=== PATIENT | male | born 1950 | race Caucasian/White ===

== ENCOUNTER → 2017-09-28 12:42 | Outpatient (CLI) | payer MEDICARE, SELFPAY ==
--- NOTE | 2017-09-28 12:53 | XR_ITS ---
XR chest 2V HISTORY: Cardiac arrhythmia ITS.REASON: on amiodarone therapyt ORDERING PHYSICIAN: Neri Hu MD PATIENT AGE: 67 years COMPARISON: 06/30/2016 FINDINGS: There is borderline cardiomegaly without failure. Lungs are clear of acute infiltrate. No pulmonary fibrotic changes are evident. No evidence of amiodarone lung toxicity. There are degenerative changes in the thoracic spine. IMPRESSION: No change with no acute finding
[2017-09-28 13:22] LABS: Basophils # 0.1 K/mm3 (0-0.2); Basophils % 0.7 % (0.1-2.0); Eosinophils # 0.1 K/mm3 (0.0-0.4); Eosinophils % 1.5 % (0.1-12.0); Hematocrit 40.7 % (42.0-52.0); Lymphocytes # 1.9 K/mm3 (0.7-4.5); Lymphocytes % 31.1 K/mm3 (10-50); Mean Corpuscular Hemoglobin 30.8 pg (27.0-31.2); Mean Corpuscular Volume 96.4 fl (80-94); Mean Platelet Volume 7.6 fl (7.4-10.4); Monocytes # 0.4 K/mm3 (0.1-1.0); Monocytes % 6.5 % (1.7-9.3); Neutrophils # 3.7 K/mm3 (1.8-7.8); Neutrophils % 60.2 % (37.0-80.0); Platelet Count 291 K/mm3 (142-424); Red Blood Count 4.22 M/mm3 (4.60-6.20); Red Cell Distribution Width 13.5 % (11.5-17.5); White Blood Count 6.2 K/mm3 (4.8-10.8)
[2017-09-28 14:42] LABS: Alanine Aminotransferase 48 U/L (12-78); Albumin Level 4.2 gm/dL (3.4-5.0); Alkaline Phosphatase 64 U/L (46-116); Anion Gap 12.6 mEq/L (5-15); Aspartate Amino Transferase 22 U/L (15-37); Bilirubin,Direct 0.2 mg/dL (0.0-0.2); Bilirubin,Indirect 0.1 mg/dL (0.0-0.9); Bilirubin,Total 0.3 mg/dL (0.2-1.0); Blood Urea Nitrogen 29 mg/dL (7-18); Carbon Dioxide 30 mmol/L (21.0-32.0); Chloride 106 mmol/L (98-107); Chol/HDL Ratio 3.2 (1-3.5); Cholesterol 169 mg/dL (140-200); Creatinine,Serum 0.98 mg/dL (0.70-1.30); Estimated Glomerular Filt Rate 76 ml/min (>60); Free T4 (Free Thyroxine) 1.12 ng/dl (0.76-1.46); GFR (African American) 92 ML/MIN (>60); Glucose 106 mg/dL (74-106); HDL Cholesterol 53 mg/dL (27-67); LDL Cholesterol 97 mg/dL (0-130); Potassium 4.6 mmoL/L (3.5-5.1); Sodium 144 mmol/L (136-145); Thyroid Stimulating Hormone 2.13 uIU/ml (0.358-3.740); Total Protein,Serum 7.4 gm/dL (6.4-8.2); Triglycerides 95 mg/dL (30-200); VLDL Cholesterol 19 mg/dL (0-40)
== END ==
PROVIDERS: PCP Family Medicine; Visit Provider Internal Medicine
DX: Z79.899 Other long term (current) drug therapy (principal); I11.9 Hypertensive heart disease without heart failure; I48.91 Unspecified atrial fibrillation; E78.5 Hyperlipidemia, unspecified; I10 Essential (primary) hypertension
CPT/HCPCS: 36415; 71046; 80048; 80061; 80076; 84439; 84443; 84481; 85025

== ENCOUNTER → 2018-07-13 12:49 | Outpatient (CLI) | payer MEDICARE, SELFPAY ==
--- NOTE | 2018-07-13 13:13 | XR_ITS ---
XR chest 2V HISTORY: Long-term medication use, prior smoker ITS.REASON: c ORDERING PHYSICIAN: Savannah Pierce PATIENT AGE: 68 years COMPARISON: 09/28/2017 FINDINGS: Cardiomegaly without failure. No lobar consolidation or collapse is evident. There is some increased density in the right lower lobe is felt to be due to summation artifact from overlying vessels and soft tissue. Mild degenerative changes are present in the thoracic spine. IMPRESSION: Cardiomegaly, no change with no acute finding
[2018-07-13 14:49] LABS: Alanine Aminotransferase 48 U/L (12-78); Albumin Level 3.8 gm/dL (3.4-5.0); Alkaline Phosphatase 68 U/L (46-116); Aspartate Amino Transferase 12 U/L (15-37); Bilirubin,Direct 0.1 mg/dL (0.0-0.2); Bilirubin,Indirect 0.1 mg/dL (0.0-0.9); Bilirubin,Total 0.2 mg/dL (0.2-1.0); Free T4 (Free Thyroxine) 0.82 ng/dl (0.76-1.46); Thyroid Stimulating Hormone 2.04 uIU/ml (0.358-3.740); Total Protein,Serum 6.8 gm/dL (6.4-8.2)
== END ==
PROVIDERS: Visit Provider Nurse Practitioner Family
DX: I11.9 Hypertensive heart disease without heart failure; I25.10 Atherosclerotic heart disease of native coronary artery without angina pectoris; I48.0 Paroxysmal atrial fibrillation; Z79.899 Other long term (current) drug therapy; E78.49 Other hyperlipidemia
CPT/HCPCS: 36415; 71046; 80076; 84439; 84443

== ENCOUNTER → 2019-05-31 09:08 | Outpatient (CLI) | payer MEDICARE, MEDICAID, SELFPAY ==
--- NOTE | 2019-05-31 09:20 | XR_ITS ---
PROCEDURE: XR CHEST 2V CLINICAL HISTORY: on amiodarone Current smoker, heart disease COMPARISON: CXR CHEST(2 VIEWS-NOT PORTABLE) from 06/30/2016 CXR2V XR chest 2V from 09/28/2017 CXR2V XR chest 2V from 07/13/2018 FINDINGS: The cardiomediastinal silhouette and pulmonary vascularity are within normal limits. There is mild hyperinflation with increased AP dimension of the chest suggesting COPD. No lobar consolidation or collapse. No pulmonary fibrotic change. Degenerative change with mild kyphosis IMPRESSION: No change with no acute finding. No evidence of amiodarone lung toxicity COPD Dictated by: Obi Frey MD 05/31/2019 09:59 Electronically signed by Obi Frey MD in [place] 05/31/2019 09:59
[2019-05-31 11:18] LABS: Alanine Aminotransferase 35 U/L (12-78); Albumin Level 3.9 gm/dL (3.4-5.0); Alkaline Phosphatase 65 U/L (46-116); Aspartate Amino Transferase 13 U/L (15-37); Bilirubin,Direct 0.1 mg/dL (0.0-0.2); Bilirubin,Indirect 0.1 mg/dL (0.0-0.9); Bilirubin,Total 0.2 mg/dL (0.2-1.0); Free T4 (Free Thyroxine) 0.94 ng/dl (0.76-1.46); Total Protein,Serum 6.8 gm/dL (6.4-8.2)
== END ==
PROVIDERS: Visit Provider Urology
DX: E78.5 Hyperlipidemia, unspecified (principal); G47.9 Sleep disorder, unspecified; I11.9 Hypertensive heart disease without heart failure; I25.10 Atherosclerotic heart disease of native coronary artery without angina pectoris; I48.91 Unspecified atrial fibrillation; R06.83 Snoring; R40.0 Somnolence; Z79.899 Other long term (current) drug therapy; Z72.0 Tobacco use
CPT/HCPCS: 36415; 71046; 80076; 84439; 84443

== ENCOUNTER → 2019-06-14 14:11 | Outpatient (CLI) | payer MEDICARE, MEDICAID, SELFPAY | PROVIDERS: PCP Family Medicine; Visit Provider Urology | DX: G47.33 Obstructive sleep apnea (adult) (pediatric) (principal); R06.83 Snoring; R40.0 Somnolence | CPT/HCPCS: G0399 ==

== ENCOUNTER → 2019-06-22 12:58 | Outpatient (CLI) | payer MEDICARE, SELFPAY ==
[2019-06-22 16:25] LABS: Ferritin 78 ng/mL (8-388)
== END ==
PROVIDERS: Visit Provider Nurse Practitioner Family
DX: E83.10 Disorder of iron metabolism, unspecified (principal)
CPT/HCPCS: 36415; 82728

== ENCOUNTER → 2019-12-04 08:55 | Outpatient (CLI) | payer MEDICARE, MEDICAID, SELFPAY ==
[2019-12-04 10:22] LABS: Coronavirus 19 IgG Antibody Negative (Negative); Coronavirus 19 IgM Antibody Negative (Negative)
== END ==
PROVIDERS: Visit Provider Ophthalmology
DX: Z01.818 Encounter for other preprocedural examination (principal)
CPT/HCPCS: 36415; 86328

== ENCOUNTER 2019-12-05 09:03 | Day surgery (SDC) | payer MEDICARE, MEDICAID, SELFPAY ==
[2019-12-05 09:43] VITALS: BP 137/63; PULSE 67; RESP 18; TEMP 36.7; O2SAT 95; BMI 40.7
[2019-12-05 10:58] VITALS: BP 162/67; PULSE 66; RESP 18; O2SAT 98
[2019-12-05 11:03] VITALS: BP 142/62; PULSE 62; RESP 20; O2SAT 100
[2019-12-05 11:08] VITALS: BP 138/64; PULSE 61; RESP 20; O2SAT 100
[2019-12-05 11:13] VITALS: BP 140/67; PULSE 61; RESP 18; O2SAT 100
[2019-12-05 11:18] VITALS: BP 136/80; PULSE 66; RESP 16; TEMP 36.6; O2SAT 99
== END 2019-12-05 11:28 | disposition home or self-care (01) ==
LOC: OR 09:06
PROVIDERS: PCP Family Medicine; Visit Provider Ophthalmology
DX: H26.9 Unspecified cataract (principal); I10 Essential (primary) hypertension; Z88.0 Allergy status to penicillin; I48.91 Unspecified atrial fibrillation; I25.10 Atherosclerotic heart disease of native coronary artery without angina pectoris; E78.5 Hyperlipidemia, unspecified; Z95.818 Presence of other cardiac implants and grafts; Z79.82 Long term (current) use of aspirin; Z79.899 Other long term (current) drug therapy
CPT/HCPCS: 66984; V2632

== ENCOUNTER → 2019-12-18 10:21 | Outpatient (CLI) | payer MEDICARE, MEDICAID, SELFPAY ==
[2019-12-18 13:18] LABS: Coronavirus 19 IgG Antibody Negative (Negative); Coronavirus 19 IgM Antibody Negative (Negative)
== END ==
PROVIDERS: Visit Provider Ophthalmology
DX: Z01.818 Encounter for other preprocedural examination (principal); H26.9 Unspecified cataract
CPT/HCPCS: 36415; 86328

== ENCOUNTER 2019-12-19 08:05 | Day surgery (SDC) | payer MEDICARE, MEDICAID, SELFPAY ==
[2019-12-18 09:47] VITALS: BMI 52.3
[2019-12-19 08:47] VITALS: BP 140/50; PULSE 66; RESP 18; TEMP 36.4; O2SAT 99
[2019-12-19 09:57] VITALS: BP 133/61; PULSE 62; RESP 22; O2SAT 98
[2019-12-19 10:02] VITALS: BP 129/64; PULSE 63; RESP 22; O2SAT 100
[2019-12-19 10:07] VITALS: BP 128/61; PULSE 63; RESP 20; O2SAT 100
[2019-12-19 10:12] VITALS: BP 125/59; PULSE 61; RESP 20; O2SAT 100
[2019-12-19 10:16] VITALS: BP 129/66; PULSE 79; RESP 18; TEMP 36.3; O2SAT 96
== END 2019-12-19 10:26 | disposition home or self-care (01) ==
LOC: OR 08:08
PROVIDERS: PCP Family Medicine; Visit Provider Ophthalmology
PROC: (CPT 66984; principal; 2019-12-19 10:00)
DX: H53.8 Other visual disturbances; I10 Essential (primary) hypertension; Z88.0 Allergy status to penicillin; Z79.82 Long term (current) use of aspirin; Z79.899 Other long term (current) drug therapy; Z87.891 Personal history of nicotine dependence; I48.91 Unspecified atrial fibrillation; I25.10 Atherosclerotic heart disease of native coronary artery without angina pectoris; E78.5 Hyperlipidemia, unspecified; F41.9 Anxiety disorder, unspecified; K21.9 Gastro-esophageal reflux disease without esophagitis; H25.813 Combined forms of age-related cataract, bilateral
CPT/HCPCS: 66984; V2632

== ENCOUNTER → 2020-01-30 09:38 | Outpatient (CLI) | payer MEDICARE, SELFPAY ==
--- NOTE | 2020-01-30 10:19 | XR_ITS ---
PROCEDURE: XR CHEST 2V CLINICAL HISTORY: on amio therapy Heart disease COMPARISON: CR CXR2V XR chest 2V from 09/28/2017 CR CXR2V XR chest 2V from 07/13/2018 CR XR CHEST 2V from 05/31/2019 FINDINGS: Mild cardiomegaly without failure. The lungs are clear without infiltrates, suspicious nodules, or pleural effusions. No pulmonary fibrotic changes evident. No acute bony findings. There are degenerative changes in the thoracic spine IMPRESSION: No change with no acute finding. No convincing evidence of amiodarone lung toxicity Dictated by: Obi Frey MD 01/30/2020 10:34 Obi Frey MD in [place] 01/30/2020 10:34
[2020-01-30 11:16] LABS: Alanine Aminotransferase 29 U/L (12-78); Alkaline Phosphatase 73 U/L (38-126); Aspartate Amino Transferase 24 U/L (17-59); Bilirubin,Direct 0.1 mg/dl (0.0-0.4); Bilirubin,Indirect 0.2 mg/dL (0.0-0.9); Bilirubin,Total 0.3 mg/dl (0.2-1.3); Bilirubin,Unconjugated 0.2 mg/dL (0.0-1.1); Total Protein,Serum 6.6 g/dl (6.3-8.2)
[2020-01-30 11:35] LABS: Free Thyroxine Index 5.1 ug/dL (5.93-13.13); Triiodothryronine (T3) Uptake 39 % (23.5-40.5)
[2020-01-30 11:48] LABS: Thyroid Stimulating Hormone < 0.02 uIU/mL (0.465-4.68)
== END ==
PROVIDERS: Urology; PCP Family Medicine; Visit Provider Nurse Practitioner Family
DX: I11.9 Hypertensive heart disease without heart failure; I25.10 Atherosclerotic heart disease of native coronary artery without angina pectoris; Z79.899 Other long term (current) drug therapy
CPT/HCPCS: 36415; 71046; 80076; 84436; 84443; 84479

== ENCOUNTER → 2020-04-15 08:09 | Outpatient (CLI) | payer MEDICARE, MEDICAID, SELFPAY ==
[2020-04-15 10:41] LABS: Coronavirus 19 IgG Antibody Negative (Negative); Coronavirus 19 IgM Antibody Negative (Negative)
== END ==
PROVIDERS: Visit Provider Ophthalmology
DX: Z01.818 Encounter for other preprocedural examination (principal)
CPT/HCPCS: 36415; 86328

== ENCOUNTER 2020-04-16 09:01 | Day surgery (SDC) | payer MEDICARE, MEDICAID, SELFPAY ==
[2020-04-09 12:50] VITALS: BMI 40.6
[2020-04-16 10:25] VITALS: BP 152/79; PULSE 56; RESP 18; TEMP 36.3; O2SAT 96
[2020-04-16 12:49] VITALS: BP 151/75; PULSE 55; RESP 18; TEMP 36.6; O2SAT 98
== END 2020-04-16 11:25 | disposition home or self-care (01) ==
LOC: OUTP 09:04
PROVIDERS: PCP Family Medicine; Visit Provider Ophthalmology
PROC: (CPT 66821; principal; 2020-04-16 10:30)
DX: H43.392 Other vitreous opacities, left eye (principal); H26.492 Other secondary cataract, left eye
CPT/HCPCS: 66821

== ENCOUNTER → 2020-10-09 09:02 | Outpatient (CLI) | payer MEDICARE, MEDICAID, SELFPAY ==
--- NOTE | 2020-10-09 09:08 | XR_ITS ---
PROCEDURE: XR CHEST 2V CLINICAL HISTORY: amiodarone therapy. COMPARISON: CR CXR2V XR chest 2V from 07/13/2018 CR XR CHEST 2V from 05/31/2019 CR XR CHEST 2V from 01/30/2020 FINDINGS: The cardiomediastinal silhouette and pulmonary vascularity are within normal limits. The lungs are clear without infiltrates, suspicious nodules, or pleural effusions. No acute bony abnormalities. IMPRESSION: No change with no acute finding. No evidence of amiodarone lung toxicity. Dictated by: Obi Frey MD 10/09/2020 12:27 Obi Frey MD in [place] 10/09/2020 12:27
== END ==
PROVIDERS: PCP Family Medicine; Visit Provider Urology
DX: E78.2 Mixed hyperlipidemia (principal); I11.9 Hypertensive heart disease without heart failure; I25.10 Atherosclerotic heart disease of native coronary artery without angina pectoris; I48.0 Paroxysmal atrial fibrillation; Z79.899 Other long term (current) drug therapy
CPT/HCPCS: 71046

== ENCOUNTER → 2022-04-08 10:09 | Outpatient (CLI) | payer MEDICARE, MEDICAID, SELFPAY ==
--- NOTE | 2022-04-08 10:44 | XR_ITS ---
FINAL REPORT TECHNIQUE: Chest PA & Lateral CLINICAL HISTORY: on amio COMPARISON: 10/09/2020 FINDINGS: 2 views of the chest were performed. There is mild cardiomegaly. The mediastinum is within normal limits. The lungs are a little underinflated. There is no acute cardiopulmonary process. There are no pleural effusions. There is no pneumothorax. The bony thorax appears intact. IMPRESSION: No acute cardiopulmonary process. Reviewed, Interpreted and Dictated by Benja Vallejo MD Transcribed by Staci Nicholas Authenticated and . [facility]
[2022-04-08 11:55] LABS: Basophils # 0.1 K/mm3 (0-0.2); Basophils % 0.9 % (0.1-2.0); Eosinophils # 0.1 K/mm3 (0.0-0.4); Eosinophils % 1.2 % (0.1-12.0); Hematocrit 40.5 % (42.0-52.0); Hemoglobin 12.8 g/dL (14.1-18.0); Lymphocytes # 2.1 K/mm3 (0.7-4.5); Mean Corpuscular HGB Conc 31.6 g/dL (31.8-35.4); Mean Corpuscular Hemoglobin 31.6 pg (27.0-31.2); Mean Corpuscular Volume 99.8 fl (80-94); Mean Platelet Volume 8.5 fl (7.4-10.4); Monocytes # 0.5 K/mm3 (0.1-1.0); Monocytes % 5.8 % (1.7-9.3); Neutrophils # 5.2 K/mm3 (1.8-7.8); Platelet Count 295 K/mm3 (142-424); Red Blood Count 4.06 M/mm3 (4.60-6.20); Red Cell Distribution Width 14.6 % (11.5-17.5); White Blood Count 7.9 K/mm3 (4.8-10.8)
[2022-04-08 12:44] LABS: Alanine Aminotransferase 28 U/L (12-78); Albumin Level 4.4 g/dl (3.5-5.0); Alkaline Phosphatase 80 U/L (38-126); Anion Gap 16.5 mEq/L (5-15); Aspartate Amino Transferase 23 U/L (17-59); Bilirubin,Unconjugated 0.2 mg/dL (0.0-1.1); Blood Urea Nitrogen 28 mg/dl (9-20); Calcium 9.7 mg/dl (8.4-10.2); Carbon Dioxide 30 mmol/L (22.0-30.0); Chloride 99 mmol/L (98-107); Chol/HDL Ratio 2.4 (1-3.5); Cholesterol 129 mg/dl (140-200); Estimated Glomerular Filt Rate 59 ml/min (>60); GFR (African American) 72 ML/MIN (>60); Glucose 95 mg/dl (74-100); HDL Cholesterol 54 mg/dl (40-60); Potassium 4.5 mmoL/L (3.5-5.1); Sodium 141 mmol/L (136-145); Total Protein,Serum 6.9 g/dl (6.3-8.2); Triglycerides 86 mg/dl (30-150); VLDL Cholesterol 17 mg/dL (0-40)
[2022-04-08 12:45] LABS: Bilirubin,Indirect 0.1 mg/dL (0.0-0.9); Bilirubin,Total 0.1 mg/dl (0.2-1.3)
[2022-04-08 13:01] LABS: Direct LDL Cholesterol 50.32 mg/dL (100-129)
[2022-04-08 13:14] LABS: Thyroid Stimulating Hormone 6.22 uIU/mL (0.465-4.68)
== END ==
PROVIDERS: PCP Family Medicine; Visit Provider Nurse Practitioner
DX: E78.2 Mixed hyperlipidemia (principal); I11.9 Hypertensive heart disease without heart failure; I25.10 Atherosclerotic heart disease of native coronary artery without angina pectoris; I48.0 Paroxysmal atrial fibrillation; Z79.899 Other long term (current) drug therapy; I63.9 Cerebral infarction, unspecified; E11.9 Type 2 diabetes mellitus without complications; R06.00 Dyspnea, unspecified
CPT/HCPCS: 36415; 71046; 80048; 80061; 80076; 84443; 85025

== ENCOUNTER → 2022-04-14 10:50 | Outpatient (CLI) | payer MEDICARE, MEDICAID, SELFPAY | PROVIDERS: PCP Family Medicine; Visit Provider Nurse Practitioner | DX: E78.2 Mixed hyperlipidemia (principal); I11.9 Hypertensive heart disease without heart failure; I25.10 Atherosclerotic heart disease of native coronary artery without angina pectoris; I48.0 Paroxysmal atrial fibrillation; Z79.899 Other long term (current) drug therapy | CPT/HCPCS: 93306 ==

== ENCOUNTER 2022-06-03 05:41 | Inpatient (IN) | payer MEDICARE, MEDICAID, SELFPAY ==
[2022-06-03] VITALS (9 sets, daily range): BP systolic 141–180; BP diastolic 67–92; PULSE 78–120; RESP 18–27; TEMP 36.6–37.8; O2SAT 83–96; BMI 42.5; BMI 42.1
--- NOTE | 2022-06-03 05:53 | XR_ITS ---
PROCEDURE INFORMATION: Exam: XR Chest Exam date and time: 06/03/2022 6:27 AM Age: 72 years old Clinical indication: Condition or disease; Lung condition and disease; Hypoxia; Fever and shortness of breath; Patient HX: Former smoker. Denies HX of copd, chf. ; Additional info: SOA, hypoxia, fever TECHNIQUE: Imaging protocol: Radiologic exam of the chest. Views: 1 view. COMPARISON: CR XR CHEST 2V 04/08/2022 11:04 AM FINDINGS: Lungs: diffuse interstitial and alveolar airspace disease most pronounced in the perihilar regions and lung bases. Cardiomegaly. Pneumonia versus cardiogenic or noncardiogenic edema versus other alveolar filling process. Correlate. Pleural spaces: Unremarkable. No pleural effusion. No pneumothorax. Heart/Mediastinum: See Lungs finding. Bones/joints: Unremarkable. IMPRESSION: Diffuse interstitial and alveolar airspace disease most pronounced in the perihilar regions and lung bases. Cardiomegaly. Pneumonia versus cardiogenic or noncardiogenic edema versus other alveolar filling process. Correlate.
--- NOTE | 2022-06-03 05:53 | PC.NURSE ---
RT at to obtain ABG
[2022-06-03 06:01] LABS: Influenza A, PCR Not Detected (NotDetected); Influenza B, PCR Not Detected (NotDetected)
[2022-06-03 06:10] LABS: ABG Base Excess -3.4 mmol/L (-2.4-2.3); ABG HCO3 19.4 mmhg (22.0-26.0); ABG Oxygen Saturation 90 % (90-100); ABG PCO2 24.3 mmhg (35.0-45.0); ABG PH 7.52 mmol/L (7.35-7.45); ABG PO2 50.7 mmhg (80-100); ABG TCO2 20.2 mmhg (23-27)
[2022-06-03 06:11] LABS: Allen's Test ACCEPTABLE; Source R RADIAL
--- NOTE | 2022-06-03 06:12 | ECG_ITS ---
APPROVED REPORT Exam: Resting ECG HR:106 bpm ECG Measurements Heart Rate 106 AXES [place] 180 P -47 QRSd 104 QRS 53 QT 339 T 48 QTc 401 Conclusion SINUS TACHYCARDIA WITH OCCASIONAL VENTRICULAR PREMATURE COMPLEXES NONSPECIFIC T-WAVE ABNORMALITY ABNORMAL RHYTHM ECG UNCONFIRMED REPORT Electronically signed by : Jose Day MD 06/03/2022 21:42:52
--- NOTE | 2022-06-03 06:15 | PC.NURSE ---
RAD at for CXR
--- NOTE | 2022-06-03 06:16 | HMH.EDURI ---
Discharge Plan Disposition Patient Disposition: Admitted As Inpatient Clinical Impressions Clinical Impression: COVID-19, Elevated brain natriuretic peptide (BNP) level, Elevated troponin, Respiratory failure Discharge ED Provider: Reji Garcia URI/Sore Throat HPI General Chief Complaint: Upper Respiratory Infection Stated Complaint: Fever, SOA, cough Time Seen by Provider: 06/03/22 06:16 Mode of Arrival: Wheelchair Source of Information: Patient, Spouse and Medical Record Limitations: No Limitations Description of Symptoms (Recalled from ER Triage Doc. by RN): Patient states he has had an upper respiratory infection which was treated last week with abx by pcp. States that he finished his abx yesterday. Pt says that his cough has began before Jayla and has not eased up. Patient says that he also has had a fever for a week that he is unable to break. History of Present Illness HPI Narrative: pt with hx of resp illness and had been treated as op with abx but has progressive sob and fever with cough MD Complaint: fever and cough Onset (ago): day(s) Duration: intermittent Severity: moderate Able to tolerate fluids by mouth: Yes Associated symptoms: fever and shortness of breath Treatments prior to arrival: acetaminophen and antibiotics Related Data Home Medications Medication Instructions Recorded Confirmed allopurinol 300 mg tablet 300 mg PO DAILY gout 09/27/17 06/03/22 amiodarone 200 mg tablet 200 mg PO DAILY HEART RATE 09/27/17 06/03/22 finasteride 5 mg tablet 5 mg PO DAILY PROSTATE 09/27/17 06/03/22 metoprolol succinate 100 mg 100 mg PO BID Hypertension 09/27/17 06/03/22 tablet,extended release 24 hr (Toprol XL) multivitamin 1 tab PO DAILY Supplement 09/27/17 06/03/22 fluticasone propionate 50 50 mcg intranasal DAILY Allergy 06/22/19 06/03/22 mcg/actuation nasal symptoms spray,suspension rosuvastatin 40 mg tablet 40 mg PO DAILY Cholesterol 10/09/20 06/03/22 aspirin 81 mg tablet,delayed 81 mg PO DAILY HEART HEALTH 06/03/22 06/03/22 release (Adult Low Dose Aspirin) levothyroxine 50 mcg tablet 50 mcg PO DAILY THYROID 06/03/22 06/03/22 lisinopril 20 1 tab PO DAILY Hypertension 06/03/22 06/03/22 mg-hydrochlorothiazide 12.5 mg tablet Allergies Allergy/AdvReac Type Severity Reaction Status Date / Time Penicillins Allergy Unknown Verified 04/22/22 10:30 allergy reaction PFSH [facility] Disclaimer: The information contained in this section may have been updated after the patient was seen, as this information can be updated by other users. Medical History (Updated 06/03/22 @ 08:36 by Reji Garcia MD) Atrial fibrillation Coronary arteriosclerosis Daytime somnolence Gout Hyperlipidemia On amiodarone therapy Restless sleeper Snoring Surgical History (Updated 06/03/22 @ 08:19 by JOSE CRUZ Plummer) History of heart artery stent Family History (Updated 06/03/22 @ 08:19 by JOSE CRUZ Plummer) Coronary artery disease Congestive heart failure Cancer Social History Smoking Status: Never smoker alcohol intake: never substance use type: denies use current occupational status: retired Travel in the last 8 weeks: Inside the [place] household members: spouse housing: house current occupational exposures/hazards: No caffeine: Yes ROS Obtained: Yes All systems reviewed & no additional complaints except as documented Physical Exam General General appearance: alert and obese Head Head exam: normocephalic Eye Eye exam: Present PERRL and EOMI ENT ENT exam: Present mucous membranes moist Neck Neck exam: Present trachea midline Respiratory Respiratory exam: Present wheezes and other (dec bs bilat ) Cardiovascular Cardiovascular exam: Present tachycardia, systolic murmur and +S4 Abdominal Exam Abdominal exam: Present soft Extremities Exam Extremities exam: Absent calf tenderness Neurological Ex
[2022-06-03 06:22] LABS: Coronavirus 19, PCR Detected (NotDetected)
--- NOTE | 2022-06-03 06:25 | PC.NURSE ---
MD at bedside reviewing results.
[2022-06-03 06:31] LABS: Basophils % 0.2 % (0.1-2.0); Eosinophils % 0.2 % (0.1-12.0); Hematocrit 37.9 % (42.0-52.0); Hemoglobin 12.3 g/dL (14.1-18.0); Lymphocytes # 0.6 K/mm3 (0.7-4.5); Lymphocytes % 3.5 % (10-50); Mean Corpuscular HGB Conc 32.5 g/dL (31.8-35.4); Mean Corpuscular Hemoglobin 30.7 pg (27.0-31.2); Mean Corpuscular Volume 94.4 fl (80-94); Mean Platelet Volume 8.5 fl (7.4-10.4); Monocytes # 0.6 K/mm3 (0.1-1.0); Neutrophils # 17.4 K/mm3 (1.8-7.8); Neutrophils % 93.2 % (37.0-80.0); Platelet Count 318 K/mm3 (142-424); Red Blood Count 4.01 M/mm3 (4.60-6.20); Red Cell Distribution Width 14.1 % (11.5-17.5); White Blood Count 18.7 K/mm3 (4.8-10.8)
[2022-06-03 06:33] LABS: MANUAL DIFFERENTIAL MANUAL DIFFERENTIAL (MANUAL DIFF)
[2022-06-03 06:34] LABS: Alanine Aminotransferase 38 U/L (12-78); Albumin Level 3.9 g/dl (3.5-5.0); Albumin/Globulin Ratio 1.1 (1.1-1.8); Alkaline Phosphatase 72 U/L (38-126); Anion Gap 13.4 mEq/L (5-15); Aspartate Amino Transferase 56 U/L (17-59); Bilirubin,Total 0.5 mg/dl (0.2-1.3); Blood Urea Nitrogen 18 mg/dl (9-20); Calcium 8.6 mg/dl (8.4-10.2); Carbon Dioxide 23 mmol/L (22.0-30.0); Chloride 100 mmol/L (98-107); Creatinine Clearance Estimated 63 mL/min (50-200); Estimated Glomerular Filt Rate 94 ml/min (>60); GFR (African American) 114 ML/MIN (>60); Globulin 3.4 g/dL (1.3-3.2); Glucose 168 mg/dl (74-100); Magnesium 1.8 mg/dl (1.6-2.3); Potassium 3.4 mmoL/L (3.5-5.1); Sodium 133 mmol/L (136-145); Total Protein,Serum 7.3 g/dl (6.3-8.2)
[2022-06-03 06:35] LABS: Lactic Acid 1.6 mmol/L (0.7-2.1)
[2022-06-03 06:39] LABS: C-Reactive Protein 205.5 mg/L (0-4)
--- NOTE | 2022-06-03 06:44 | PC.NURSE ---
Dr. Garcia speaking with Dr. Ivy
[2022-06-03 06:45] LABS: NT Pro Brain Natriuretic Pep. 1940 pg/mL (0-125)
--- NOTE | 2022-06-03 06:51 | PC.NURSE ---
Dr. Garcia s/w Dr. Ivy for admission, agrees. House notified for bed assignment
[2022-06-03 06:53] LABS: Procalcitonin 0.246 ng/mL (0.0-2.0)
[2022-06-03 06:54] LABS: Troponin I 0.61 ng/ml (0.00-0.034)
--- NOTE | 2022-06-03 06:54 | PC.NURSE ---
Dr. Garcia notified of critical troponin level
[2022-06-03 07:03] LABS: Erythrocyte Sedimentation Rate 101 mm/hr (0-20); Lymphocytes % 3 % (10-50); Neutrophils % 97 % (42-76); Platelet Estimate Normal; RBC Morphology Normal; Total Cells Counted 100
--- NOTE | 2022-06-03 08:10 | EXP.HP ---
History of Present Illness *Admission Date: 06/03/22 *Reason for visit:: SOA *History of present illness: Mr. Azevedo is a 72-year-old male who was recently seen in the office of [facility] on 05/27/2022 with complaints of sinus congestion and coughing for over 2 months as well as a low-grade fever off and on. He had also had some body aches and some postnasal drainage. He was started on Ceftin 500 mg twice daily at that time. He finished antibiotics and his cough had not improved. He was unable to get his fever to break and presented to the emergency room. He was found to be COVID-positive and in respiratory failure. His white blood cell count was elevated at 18.7, his troponin was slightly elevated at 0.61, his BNP was elevated at 1940, and his C-reactive protein was elevated as well. His chest x-ray is still pending. He has been started on Zithromax and was given a dose of dexamethasone. He has also been started on COVID vitamins and was given 1 dose of remdesivir. [facility] Disclaimer: The information contained in this section may have been updated after the patient was seen, as this information can be updated by other users. Medical History (Updated 06/03/22 @ 13:32 by JOSE CRUZ Plummer) Atrial fibrillation Coronary arteriosclerosis Daytime somnolence Gout Hyperlipidemia On amiodarone therapy Restless sleeper Snoring Surgical History (Updated 06/03/22 @ 08:19 by JOSE CURZ Plummer) History of heart artery stent Family History (Updated 06/03/22 @ 08:19 by JOSE CRUZ Plummer) Coronary artery disease Congestive heart failure Cancer Social History (Updated 06/03/22 @ 09:25 by Mckenzie Casiano) Smoking Status: Former smoker alcohol intake: never substance use type: denies use current occupational status: retired Travel in the last 8 weeks: None household members: spouse housing: house current occupational exposures/hazards: No caffeine: Yes Review of Systems Constitutional Constitutional: Reports body ache(s), Reports chills, Reports fatigue, Reports fever(s), Reports headache(s) and Reports weakness Eyes Eyes: Denies blurry vision and Denies diplopia ENT Ears, Nose, Mouth, and Throat: Reports headache(s), Reports nasal congestion, Reports sore throat and Denies vertigo *Cardiovascular Cardiovascular: Denies chest pain and Reports dyspnea *Respiratory Respiratory: Reports chest congestion, Reports cough and Reports dyspnea *Gastrointestinal Gastrointestinal: Denies abdominal pain, Denies diarrhea, Denies nausea and Denies vomiting *Genitourinary Genitourinary: Denies difficulty urinating and Denies dysuria *Musculoskeletal Musculoskeletal: Reports myalgias *Neurologic Neurologic: Reports headache(s), Denies vertigo and Reports weakness Endocrine Endocrine: Reports fatigue Meds Home Medications and Allergies Home Medications Medication Instructions Recorded Confirmed Type allopurinol 300 mg tablet 300 mg PO DAILY gout 09/27/17 06/03/22 History amiodarone 200 mg tablet 200 mg PO DAILY HEART RATE 09/27/17 06/03/22 History finasteride 5 mg tablet 5 mg PO DAILY PROSTATE 09/27/17 06/03/22 History metoprolol succinate 100 mg 100 mg PO BID Hypertension 09/27/17 06/03/22 History tablet,extended release 24 hr (Toprol XL) multivitamin 1 tab PO DAILY Supplement 09/27/17 06/03/22 History fluticasone propionate 50 50 mcg intranasal DAILY Allergy 06/22/19 06/03/22 History mcg/actuation nasal symptoms spray,suspension rosuvastatin 40 mg tablet 40 mg PO DAILY Cholesterol 10/09/20 06/03/22 History aspirin 81 mg tablet 81 mg PO DAILY Heart disease 06/03/22 06/03/22 History levothyroxine 50 mcg tablet 50 mcg PO DAILY THYROID 06/03/22 06/03/22 History lisinopril 20 1 tab PO DAILY Hypertension 06/03/22 06/03/22 History mg-hydrochlorothiazide 12.5 mg tablet New Prescriptions to Start Prescriptions: Allergies Allergy/AdvReac Type Severity Reaction Status Date / Time Pe
--- NOTE | 2022-06-03 08:29 | PC.NURSE ---
PATIENT ARRIVED BY WHEELCHAIR FROM ED
[2022-06-03 09:43] LABS: Troponin I 0.64 ng/ml (0.00-0.034)
--- NOTE | 2022-06-03 10:41 | PC.NURSE ---
Patient up to bedside for void via urinal. O2 sats 85% with 5 beat run of Vtach. Serge BILLINGSLEY notified by export clerk at time of occurence. Venti mask at 50 % placed on patient and patient returned to bed. Patient states understanding of calling for assistance before attempting to get out of bed
--- NOTE | 2022-06-03 11:44 | EXP.CARD.CON ---
History of Present Illness History of Present Illness Consult date: 06/03/22 Requesting physician: Radha Ivy Consult reason: congestive heart failure Chief complaint: COVID, CHF, elevated troponin/type II non-STEMI Additional Medical History:: 1. CAD -History of [facility], 2015, medical management recommended 2. LEIF 3. Hypertension -Echo, 04/20/2022, EF 55-60% with no regional WMA. Mild LAE with mild MR. Normal RV function. Unable to accurately assess RVSP. 4. Paroxysmal atrial fibrillation -On amiodarone therapy chronically with the last check of chest x-ray, thyroid and lipid panel 03/2022 -Recently started on Xarelto 03/2022, discontinued after 1 week due to significant bruising 5. COVID with pneumonia, 06/03/2022 -Elevated BNP/CHF, 06/03/2022 6. Hyperlipidemia ?LDL 50, 04/08/2022 7. 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 Azevedo is a 72-year-old male who was recently seen in the office of [facility] on 05/27/2022 with complaints of sinus congestion and coughing for over 2 months as well as a low-grade fever off and on.? He had also had some body aches and some postnasal drainage.? He was started on Ceftin 500 mg twice daily at that time.? He finished antibiotics and his cough had not improved.? He was unable to get his fever to break and presented to the emergency room.? He was found to be COVID-positive and in respiratory failure.? His white blood cell count was elevated at 18.7, his troponin was slightly elevated at 0.61, his BNP was elevated at 1940, and his C-reactive protein was elevated as well.? His chest x-ray is still pending.? He has been started on Zithromax and was given a dose of dexamethasone.? He has also been started on COVID vitamins and was given 1 dose of remdesivir. The above per Vanessa Garduno PA-C for Dr. Ivy Events as above confirmed with patient. Shortness of breath worse over the last several days. Denies any chest pain, pressure or tightness. Recent Xarelto institution for PAF, discontinued due to bruising per patient. States he feels like his heart has been in rhythm. He continues on amiodarone therapy 200 mg daily and metoprolol succ 100 mg BID. Elevated troponin consistent with type II non-ST elevation IN likely related to COVID-pneumonia. Elevated BNP also associated with COVID-pneumonia as well producing right heart strain. EKG shows sinus tachycardia with nonspecific ST-T abnormalities inferolaterally but no acute ST segment changes. Chest x-ray this admission shows diffuse interstitial and alveolar airspace disease most pronounced in the perihilar regions and lung bases. Pneumonia versus cardiogenic or noncardiogenic edema versus other alveolar filling process. Clinical correlation recommended [facility] Disclaimer: The information contained in this section may have been updated after the patient was seen, as this information can be updated by other users. Medical History (Updated 06/03/22 @ 11:52 by JOSE CRUZ Fisher) Atrial fibrillation Coronary arteriosclerosis Daytime somnolence Gout Hyperlipidemia On amiodarone therapy Restless sleeper Snoring Surgical History (Updated 06/03/22 @ 08:19 by JOSE CRUZ Plummer) History of heart artery stent Family History (Updated 06/03/22 @ 08:19 by JOSE CRUZ Plummer) Coronary artery disease Congestive heart failure Cancer Social History (Updated 06/03/22 @ 09:25 by Mckenzie Casiano) Smoking Status: Former smoker alcohol intake: never substance use type: denies use current occupational status: retired Travel in the last 8 weeks: None household members: spouse housing: house current occupational exposures/hazards: No caffeine: Yes Review of Systems Review of Systems Review of systems:: pertinent systems reviewed and negative unless documented below Constitutional Constitutional: Reports fatigue and Reports weakness *Cardiovascular Cardiovascular: Denies chest sampson
--- NOTE | 2022-06-03 11:59 | HMH.PHAINT1 ---
Pharmacy Intervention Comments: MEDICATION RECONCILIATION COMPLETED ON PATIENT USING EXTERNAL FILL HISTORY FROM PHARMACY AND PATIENT INTERVIEW. -EVON BLAKE, EDERD
--- NOTE | 2022-06-03 12:05 | CA_ITS ---
APPROVED REPORT EXAM: Comprehensive 2D, Doppler, and color-flow Echocardiogram Fur Glazer: Cece Lebron CRT Ht: 5 ft 8 in Wt: 278lbs BSA: 2.35 BP: 145/75 mmHg Indications: Covid +, ARF, marzena, HTN, HLD, obesity 2D Dimensions LVOT 2.07 cm (M/F) 1.5-2.5 M-Mode Dimensions RVDd 2.94 cm (0.9-2.6) LA Diam 4.54 cm (1.9-4.0) LVDd 6.39 cm (3.5-5.7) Ao Diam 5.03 cm (2.0-3.7) LVDs 4.66 cm (3.5-5.7) IVSd 1.26 cm (0.6-1.1) PWd 1.05 cm (0.6-1.1) EF (Teich) 51.70% FS 27.10% EDV (Teich) 207.80 mL ESV (Teich) 100.30 mL Conclusion 1. Limited echocardiogram was obtained to evaluate left and right systolic function. 2. Left ventricle is normal size estimate ejection fraction 55% with no regional wall motion abnormality. 3. The right ventricle is mildly enlarged with normal contractility. 4. No significant pericardial effusion noted. 5. Inferior vena cava is poorly visualized. Electronically signed by : Aidan Martinez MD 06/03/2022 14:54:28
[2022-06-03 12:39] LABS: Troponin I 0.53 ng/ml (0.00-0.034)
[2022-06-04] VITALS (15 sets, daily range): BP systolic 123–173; BP diastolic 59–82; PULSE 50–114; RESP 17–24; TEMP 36.4–37.2; O2SAT 92–96; BMI 42.0
--- NOTE | 2022-06-04 03:04 | ECG_ITS ---
APPROVED REPORT Exam: Resting ECG HR:73 bpm ECG Measurements Heart Rate 73 AXES MA 211 P 79 QRSd 100 QRS 42 QT 423 T 52 QTc 450 Conclusion SINUS RHYTHM WITH FIRST DEGREE AV BLOCK WITH OCCASIONAL VENTRICULAR PREMATURE COMPLEXES ABNORMAL ECG WARNING: DATA QUALITY MAY AFFECT INTERPRETATION UNCONFIRMED REPORT Electronically signed by : Jose Day MD 06/04/2022 13:20:03
--- NOTE | 2022-06-04 03:34 | PC.NURSE ---
AT O320 PATIENT CONTINUES TO HAVE VTACH MORE FREQUENT AND LONGER. UP TO 15 BEATS OR MORE. BP 161/78, 79 HR, 22 RESPD, 95% 02 SAT OM 15L 02/50% 0XYGEN.DR RUTH NOTIFIED AND ORDERS RECIEVED TO CHANGE IVFs TO 1/2 NS + 20 MEQ POTASSIUM TO RUN AT 75 ML/HR. PO MAG OX 400 MG PO AND PO POTASSIUM 20 MEQ NOW. ALSO AMIODARONE 100 MG PO NOW ORDER RECIEVED BUT NOT GIVEN DR Manjeet WARREN/MANAGER [employer]GRAM CALLED AND ORDERED AMIODARONE 150 MG IV OVER 10 MIN LOADING DOSE FOLLOWED BY AMIODARONE 1MG/MIN X 6 HRS.
--- NOTE | 2022-06-04 03:40 | PC.NURSE ---
PATIENT TO BE TRANSFERED TO STEP DOWN FOR THE AMIODARONE.
--- NOTE | 2022-06-04 03:58 | PC.NURSE ---
REPORT GIVEN TO JESSIE NERI/PINKY DOWN
--- NOTE | 2022-06-04 04:44 | PC.NURSE ---
report taken from Za RN, pt transferred to step down room 216 for amio drip; amio bolus 150mg given over 10 minutes and then amio drip started per protocol at 1mg/hr=33.3mL/hr, will need to turn drip down to 0.5mg/hr at 1045 for 18 hour duration; new 20G IV started right forearm; changed pt's leads and electrodes due to monitor stating HR very high when HR not actually that high; pt up to chair, resting comfortably, call light within reach
--- NOTE | 2022-06-04 04:57 | PC.NURSE ---
MD Hu called and ordered to give one time dose of metoprolol tartrate 50mg PO, will send rec to nightwatch and give med per order
--- NOTE | 2022-06-04 05:58 | PC.NURSE ---
notified MD Hu pt's HR 60-70's and rhythm is NSR with first degree avb and occasional pvc's, bp 140's, no new orders at this time
[2022-06-04 06:56] LABS: Basophils % 0.2 % (0.1-2.0); Hematocrit 37.1 % (42.0-52.0); Hemoglobin 11.7 g/dL (14.1-18.0); Lymphocytes # 1.1 K/mm3 (0.7-4.5); Lymphocytes % 6.6 % (10-50); Mean Corpuscular HGB Conc 31.5 g/dL (31.8-35.4); Mean Corpuscular Hemoglobin 30.5 pg (27.0-31.2); Mean Corpuscular Volume 96.7 fl (80-94); Mean Platelet Volume 8.9 fl (7.4-10.4); Monocytes # 0.5 K/mm3 (0.1-1.0); Neutrophils # 15.4 K/mm3 (1.8-7.8); Neutrophils % 90.3 % (37.0-80.0); Platelet Count 353 K/mm3 (142-424); Red Blood Count 3.83 M/mm3 (4.60-6.20); Red Cell Distribution Width 14.2 % (11.5-17.5)
[2022-06-04 06:57] LABS: Alanine Aminotransferase 47 U/L (12-78); Albumin Level 3.4 g/dl (3.5-5.0); Albumin/Globulin Ratio 1.1 (1.1-1.8); Alkaline Phosphatase 67 U/L (38-126); Anion Gap 9.8 mEq/L (5-15); Aspartate Amino Transferase 60 U/L (17-59); Bilirubin,Total 0.4 mg/dl (0.2-1.3); Blood Urea Nitrogen 22 mg/dl (9-20); Calcium 8.5 mg/dl (8.4-10.2); Carbon Dioxide 27 mmol/L (22.0-30.0); Chloride 105 mmol/L (98-107); Creatinine Clearance Estimated 63 mL/min (50-200); Estimated Glomerular Filt Rate 94 ml/min (>60); GFR (African American) 114 ML/MIN (>60); Globulin 3.1 g/dL (1.3-3.2); Glucose 176 mg/dl (74-100); Potassium 3.8 mmoL/L (3.5-5.1); Sodium 138 mmol/L (136-145); Total Protein,Serum 6.5 g/dl (6.3-8.2)
[2022-06-04 07:05] LABS: MANUAL DIFFERENTIAL MANUAL DIFFERENTIAL (MANUAL DIFF)
[2022-06-04 07:19] LABS: Lymphocytes % 5 % (10-50); Monocytes % 3 % (2-9); Neutrophils % 92 % (42-76); Total Cells Counted 100
[2022-06-04 07:20] LABS: Platelet Estimate Normal; RBC Morphology Normal
[2022-06-04 08:05] LABS: Magnesium 2.4 mg/dl (1.6-2.3)
--- NOTE | 2022-06-04 09:01 | EXP.ACUTE.PN ---
Subjective *Date: 06/04/22 *Time: 09:01 Interval history: I was contacted during the night. The nurse reported runs of V. tach. I ordered an additional dose of potassium and 400 mg of magnesium p.o. I also ordered 100 mg of amiodarone p.o. He was on 200 mg daily. I spoke with Dr. Hu. He was able to have the nurse text him the rhythm strip. He felt it might be supraventricular instead of V. tach. Initiated amiodarone drip. This morning the patient is in normal sinus rhythm at a rate of around 60. He is sitting up and is comfortable. He states that he feels better than he did yesterday. He feels that his cough is improved. Medical Exam Vital signs and Labs for Last 24 Hours: Vital Signs Temp Pulse Pulse Resp BP BP Pulse Ox 06/04/22 08:00 98.6 F 06/04/22 04:39 114 H 06/04/22 06:00 63 22 129/61 94 L 06/04/22 05:08 90 24 141/79 H 96 06/04/22 04:00 74 06/04/22 00:00 85 06/03/22 20:00 93 H 06/04/22 00:00 98.4 F 80 22 173/78 H 92 L 06/03/22 20:00 96 06/03/22 20:00 97.8 F 91 H 24 148/84 H 94 L 06/03/22 16:00 90 06/03/22 16:00 98.5 F 78 18 146/75 H 96 06/03/22 12:00 90 06/03/22 12:00 97.8 F 86 18 149/67 H 95 06/03/22 10:37 100 H 06/03/22 09:16 99.4 F 101 H 22 141/70 H FiO2 06/04/22 08:00 06/04/22 04:39 06/04/22 06:00 50 06/04/22 05:08 50 06/04/22 04:00 06/04/22 00:00 06/03/22 20:00 06/04/22 00:00 06/03/22 20:00 50 06/03/22 20:00 06/03/22 16:00 06/03/22 16:00 06/03/22 12:00 06/03/22 12:00 06/03/22 10:37 06/03/22 09:16 Intake and Output 06/03/22 06/04/22 06/04/22 19:59 03:59 11:59 Intake Total 1197 / 1197 Output Total 400 / 1100 700 / 1100 Balance 797 / 97 -700 / 97 Intake: Intake, Oral Amount 980 / 980 Intake, Total IV Amount 217 / 217 0.9 % Sodium Chloride 1,000 ml 217 / 217 @ 50 mls/hr IV .Q20H [facility] Rx#: [id number] Output: Output, Urine Amount 400 / 1100 700 / 1100 Other: Number of Voids 1 Number of Unmeasured Voids 1 Weight 277 lb 7.016 oz Patient Weight 06/04/22 11:59 Weight 277 lb 7.016 oz Laboratory Results - last 24 hr 06/03/22 08:56: Troponin I 0.64 H 06/03/22 11:55: Troponin I 0.53 H 06/04/22 05:40: WBC 17.0 H, RBC 3.83 L, Hgb 11.7 L, Hct 37.1 L, MCV 96.7 H, MCH 30.5, MCHC 31.5 L, RDW 14.2, Plt Count 353, MPV 8.9, Neut % (Auto) 90.3 H, Lymph % (Auto) 6.6 L, [place] % (Auto) 3.0, Eos % (Auto) 0.0 L, Baso % (Auto) 0.2, Neut # (Auto) 15.4 H, Lymph # (Auto) 1.1, [place] # (Auto) 0.5, Eos # (Auto) 0.0, Baso # (Auto) 0.0, Total Counted 100, Neutrophils % (Manual) 92 H, Lymphocytes % (Manual) 5 L, Monocytes % (Manual) 3, Platelet Estimate Normal, RBC Morphology Normal 06/04/22 05:40: Magnesium 2.4 H D 06/04/22 05:40: Sodium 138, Potassium 3.8, Chloride 105, Carbon Dioxide 27, Anion Gap 9.8, BUN 22 H, Creatinine 0.80, Estimated Creat Clear 63, Estimated GFR 94, Est GFR ( Amer) 114, Glucose 176 H, Calcium 8.5, Total Bilirubin 0.4, AST 60 H, ALT 47, Alkaline Phosphatase 67, Total Protein 6.5, Albumin 3.4 L D, Globulin 3.1, Albumin/Globulin Ratio 1.1 I & O for Labs for Last 24 Hours: Intake & Output 06/01/22 06/02/22 06/03/22 06/04/22 11:59 11:59 11:59 11:59 Intake Total 480 / 480 1197 / 1197 Output Total 400 / 400 1100 / 1100 Balance 80 / 80 97 / 97 Weight 277 lb 7 oz 277 lb 7.016 oz Head: Present normocephalic Neck: Present normal inspection Respiratory: Present CTA bilaterally and rales (Some bibasilar) Cardiac: Present Irregularly Regular Comment:: EKG confirms atrial fibrillation. GI: Present soft; Absent tenderness Rectal (male): Present deferred (male): Present deferred Extremities: Absent edema Skin: Present intact Neuro: Present alert and oriented x 3 Assessment and Plan *Assessment and plan (1) Pneumonia: Status: Acute Category: Medic
--- NOTE | 2022-06-04 10:45 | PC.NURSE ---
Addendum entered by Zachary Singh RN 06/04/22 18:51: 0.5mg/hr Original Note: amiodarone drip titrated down to mg/hr at this time, current BP 145/75, HR 66 in NSR per telemetry
--- NOTE | 2022-06-04 11:25 | EXP.CARD.PN ---
Subjective Subjective Date: 06/04/22 Time: 11:25 Principal diagnosis: COVID, pneumonia, A. fib Interval history: 72-year-old white male in bedside chair in no acute distress. Conversational dyspnea has improved overnight but still present. Still on supplemental oxygen by Ventimask with O2 sat at 95% Telemetry shows sinus bradycardia IV amiodarone loading in progress Exam Data for Last 24 hours Vital signs and Labs for Last 24 Hours: Temp Pulse Resp BP Pulse Ox FiO2 98.6 F 52 L 24 141/71 H 95 50 06/04/22 08:00 06/04/22 10:00 06/04/22 10:00 06/04/22 10:00 06/04/22 10:00 06/04/22 10:00 Laboratory Results - last 24 hr 06/03/22 11:55: Troponin I 0.53 H 06/04/22 05:40: WBC 17.0 H, RBC 3.83 L, Hgb 11.7 L, Hct 37.1 L, MCV 96.7 H, MCH 30.5, MCHC 31.5 L, RDW 14.2, Plt Count 353, MPV 8.9, Neut % (Auto) 90.3 H, Lymph % (Auto) 6.6 L, [place] % (Auto) 3.0, Eos % (Auto) 0.0 L, Baso % (Auto) 0.2, Neut # (Auto) 15.4 H, Lymph # (Auto) 1.1, [place] # (Auto) 0.5, Eos # (Auto) 0.0, Baso # (Auto) 0.0, Total Counted 100, Neutrophils % (Manual) 92 H, Lymphocytes % (Manual) 5 L, Monocytes % (Manual) 3, Platelet Estimate Normal, RBC Morphology Normal 06/04/22 05:40: Magnesium 2.4 H D 06/04/22 05:40: Sodium 138, Potassium 3.8, Chloride 105, Carbon Dioxide 27, Anion Gap 9.8, BUN 22 H, Creatinine 0.80, Estimated Creat Clear 63, Estimated GFR 94, Est GFR ( Amer) 114, Glucose 176 H, Calcium 8.5, Total Bilirubin 0.4, AST 60 H, ALT 47, Alkaline Phosphatase 67, Total Protein 6.5, Albumin 3.4 L D, Globulin 3.1, Albumin/Globulin Ratio 1.1 I & O for Last 24 hours: Intake & Output 06/01/22 06/02/22 06/03/22 06/04/22 11:59 11:59 11:59 11:59 Intake Total 480 / 480 1197 / 1197 Output Total 400 / 400 1100 / 1100 Balance 80 / 80 97 / 97 Weight 277 lb 7 oz 277 lb 7.016 oz Constitutional Constitutional: no acute distress and morbidly obese *Routine Respiratory Exam Respiratory: Present decreased breath sounds and rhonchi *Routine Cardiovascular Exam Cardiovascular: Present RRR; Absent murmur, gallop or rubs Progress Note: A&P Assessment and plan (1) Pneumonia: Status: Acute (2) COVID-19: Status: Acute (3) Tachycardia: Status: Acute (4) Paroxysmal atrial fibrillation: Status: Acute (5) On amiodarone therapy: Status: Chronic (6) Hypertension: Status: Acute (7) Elevated troponin: Status: Acute Assessment and Plan Assessment and Plan for All Diagnoses:: 1.? COVID with pneumonia, defer to Dr. Ivy - On ABX with Remdesivir 2.? Elevated troponin in the setting of COVID with pneumonia, likely type II non-ST elevation [place]. -Limited echo shows EF 55% with no regional wall motion abnormality. Mild RV enlargement with normal contractility - no plans for [facility] at this time 3.? Elevated BNP -Likely secondary to COVID with right heart strain producing heart failure picture.? -IV Lasix. 4.? Hypoxemia -supplemental oxygen in place 5.? Hypertension -On lisinopril HCTZ and metoprolol have been resumed. 6.? Hypothyroidism - levothyroxine continued 7.? Hyperlipidemia, LDL 50, 03/2022 -statin has been continued 8.? History of paroxysmal atrial fibrillation with runs of SVT vs VT on telemetry - amiodarone both oral along with IV loading in progress. Telemetry is sinus this AM - Will cover with Lovenox during hospitalization.? Patient has been intolerant of anticoagulation due to bruising 9.? Hypokalemia, resolved 10.? Hyponatremia, resolved
[2022-06-05] VITALS (12 sets, daily range): BP systolic 124–156; BP diastolic 59–85; PULSE 57–82; RESP 15–23; TEMP 36.4–37.2; O2SAT 90–97; BMI 44.4
--- NOTE | 2022-06-05 04:20 | PC.NURSE ---
Pt remains on Amio gtt @16.7 mcg/min. Will be d/c @0445. Tele this shift NSR with 1st degree av block, prolonged QT interval, and occasional PVC's. SBP 124/157 so far this shift. Pt HR in 50's while sleeping Pt remains on 4L NC and tolerating well with O2 sats >90. LS clear. Pt using BSC and has had 1 small BM this shift.
--- NOTE | 2022-06-05 05:13 | PC.NURSE ---
Corinao gtt stopped @ 2359.
[2022-06-05 06:34] LABS: Alanine Aminotransferase 98 U/L (12-78); Albumin Level 3.5 g/dl (3.5-5.0); Albumin/Globulin Ratio 1.1 (1.1-1.8); Alkaline Phosphatase 72 U/L (38-126); Anion Gap 10.9 mEq/L (5-15); Aspartate Amino Transferase 89 U/L (17-59); Bilirubin,Total 0.5 mg/dl (0.2-1.3); Blood Urea Nitrogen 29 mg/dl (9-20); Calcium 8.6 mg/dl (8.4-10.2); Carbon Dioxide 26 mmol/L (22.0-30.0); Chloride 103 mmol/L (98-107); Creatinine Clearance Estimated 63 mL/min (50-200); Estimated Glomerular Filt Rate 82 ml/min (>60); GFR (African American) 100 ML/MIN (>60); Globulin 3.3 g/dL (1.3-3.2); Glucose 143 mg/dl (74-100); Potassium 3.9 mmoL/L (3.5-5.1); Sodium 136 mmol/L (136-145); Total Protein,Serum 6.8 g/dl (6.3-8.2)
--- NOTE | 2022-06-05 08:54 | EXP.ACUTE.PN ---
Subjective *Date: 06/05/22 *Time: 08:54 Interval history: Patient is feeling better this morning. He states that shortness of breath is improved and his sinus congestion has resolved. He does have some increased lower extremity edema. He wants to go home today and states he is feeling much better. Medical Exam Vital signs and Labs for Last 24 Hours: Vital Signs Temp Pulse Pulse Resp BP Pulse Ox FiO2 06/05/22 04:00 60 06/05/22 06:00 62 21 153/81 H 92 L 06/05/22 04:00 57 L 19 124/59 L 93 L 06/05/22 02:00 62 23 140/77 95 06/04/22 23:00 95 06/05/22 00:00 70 06/04/22 20:00 60 06/05/22 00:00 98.6 F 69 22 138/85 94 L 06/04/22 22:00 66 20 157/81 H 95 06/04/22 20:00 98.9 F 67 18 156/82 H 93 L 06/04/22 12:00 62 06/04/22 18:00 63 18 133/60 95 06/04/22 16:00 61 06/04/22 16:00 93 L 06/04/22 16:00 97.8 F 06/04/22 16:00 60 17 129/72 96 06/04/22 14:00 61 18 136/59 L 94 L 06/04/22 12:00 97.6 F 06/04/22 12:00 69 22 147/72 H 93 L 50 06/04/22 10:00 52 L 24 141/71 H 95 50 06/04/22 09:00 61 20 132/68 95 50 Intake and Output 06/04/22 06/05/22 06/05/22 19:59 03:59 11:59 Intake Total 960 / 1940 980 / 1940 Output Total 0 / 2300 600 / 2300 1700 / 2300 Balance 960 / -360 -600 / -360 -720 / -360 Intake: Intake, Oral Amount 960 / 960 Intake, Total IV Amount 980 / 980 0.45% NaCl w/20mEq KCL 1,000 ml 980 / 980 @ 75 mls/hr IV .[id number] Rx #:[id number] Output: Output, Urine Amount 0 / 2300 600 / 2300 1700 / 2300 Other: Number of Unmeasured Voids 1 Weight 293 lb 3.437 oz Patient Weight 06/05/22 11:59 Weight 293 lb 3.437 oz Laboratory Results - last 24 hr 06/05/22 05:43: Sodium 136, Potassium 3.9, Chloride 103, Carbon Dioxide 26, Anion Gap 10.9, BUN 29 H D, Creatinine 0.90, Estimated Creat Clear 63, Estimated GFR 82, Est GFR ( Amer) 100, Glucose 143 H, Calcium 8.6, Total Bilirubin 0.5, AST 89 H D, ALT 98 H D, Alkaline Phosphatase 72, Total Protein 6.8, Albumin 3.5, Globulin 3.3 H, Albumin/Globulin Ratio 1.1 I & O for Labs for Last 24 Hours: Intake & Output 06/02/22 06/03/22 06/04/22 06/05/22 11:59 11:59 11:59 11:59 Intake Total 480 / 480 1197 / 1197 1940 / 1940 Output Total 400 / 400 1100 / 1100 2300 / 2300 Balance 80 / 80 97 / 97 -360 / -360 Weight 277 lb 7 oz 277 lb 7.016 oz 293 lb 3.437 oz Microbiology Reports for the Last 24 Hours: Microbiology 06/03/22 05:53 Blood Blood Culture - Preliminary NO GROWTH AFTER 48 HOURS 06/03/22 05:53 Blood Blood Culture - Preliminary NO GROWTH AFTER 48 HOURS Constitutional: Present no acute distress Head: Present normocephalic Neck: Present normal inspection Respiratory: Present rales (Some bibasilar) Cardiac: Present Reg Rate and Rhythm Comment:: EKG confirms atrial fibrillation. GI: Present soft; Absent tenderness Rectal (male): Present deferred (male): Present deferred Extremities: Absent edema Skin: Present intact Neuro: Present alert and oriented x 3 Assessment and Plan *Assessment and plan (1) Pneumonia: Status: Acute Category: Medical Code(s): J18.9 - Pneumonia, unspecified organism (2) COVID-19: Status: Acute Category: Medical Code(s): U07.1 - COVID-19 (3) Tachycardia: Status: Acute Category: Medical Code(s): R00.0 - Tachycardia, unspecified (4) Paroxysmal atrial fibrillation: Status: Acute Category: Medical Code(s): I48.0 - Paroxysmal atrial fibrillation (5) On amiodarone therapy: Status: Chronic Category: Medical Code(s): Z79.899 - Other watermelon inspector (current) drug therapy (6) Hypertension: Status: Acute Category: Medical Code(s): I10 - Essential (primary) h
--- NOTE | 2022-06-05 11:05 | EXP.CARD.PN ---
Subjective Subjective Date: 06/05/22 Time: 11:05 Principal diagnosis: COVID, pneumonia, A. fib Interval history: 72-year-old white male sitting in bedside chair in no acute distress. Oxygen by nasal cannula at 5 L/min Breathing seems to be easier today. Telemetry continues to show sinus rhythm. Exam Data for Last 24 hours Vital signs and Labs for Last 24 Hours: Temp Pulse Resp BP Pulse Ox FiO2 97.5 F L 62 21 153/81 H 92 L 50 06/05/22 08:00 06/05/22 06:00 06/05/22 06:00 06/05/22 06:00 06/05/22 06:00 06/04/22 12:00 Laboratory Results - last 24 hr 06/05/22 05:43: Sodium 136, Potassium 3.9, Chloride 103, Carbon Dioxide 26, Anion Gap 10.9, BUN 29 H D, Creatinine 0.90, Estimated Creat Clear 63, Estimated GFR 82, Est GFR ( Amer) 100, Glucose 143 H, Calcium 8.6, Total Bilirubin 0.5, AST 89 H D, ALT 98 H D, Alkaline Phosphatase 72, Total Protein 6.8, Albumin 3.5, Globulin 3.3 H, Albumin/Globulin Ratio 1.1 I & O for Last 24 hours: Intake & Output 06/02/22 06/03/22 06/04/22 06/05/22 11:59 11:59 11:59 11:59 Intake Total 480 / 480 1197 / 1197 2180 / 2180 Output Total 400 / 400 1100 / 1100 2300 / 2300 Balance 80 / 80 97 / 97 -120 / -120 Weight 277 lb 7 oz 277 lb 7.016 oz 293 lb 3.437 oz Microbiology Reports for the Last 24 Hours: Microbiology 06/03/22 05:53 Blood Blood Culture - Preliminary NO GROWTH AFTER 48 HOURS 06/03/22 05:53 Blood Blood Culture - Preliminary NO GROWTH AFTER 48 HOURS Constitutional Constitutional: no acute distress *Routine Respiratory Exam Respiratory: Present rales and diminished air movement; Absent rhonchi or wheezes *Routine Cardiovascular Exam Cardiovascular: Present RRR *Routine Extremities Exam Extremities: Present edema; Absent cyanosis or clubbing Progress Note: A&P Assessment and plan (1) Pneumonia: Status: Acute (2) COVID-19: Status: Acute (3) Paroxysmal atrial fibrillation: Status: Acute (4) On amiodarone therapy: Status: Chronic (5) Hypertension: Status: Acute (6) Elevated troponin: Status: Acute Assessment and Plan Assessment and Plan for All Diagnoses:: 1.? COVID with pneumonia, defer to Dr. Ivy - On ABX with Remdesivir 2.? Elevated troponin in the setting of COVID with pneumonia, likely type II non-ST elevation [place]. -Limited echo shows EF 55% with no regional wall motion abnormality.? Mild RV enlargement with normal contractility - no plans for [facility] at this time - [facility], 2014, mild CAD. On ASA therapy. 3.? Elevated BNP with LE edema -Likely secondary to COVID with right heart strain producing heart failure picture.? -IV Lasix. 4.? Hypoxemia -supplemental oxygen in place 5.? Hypertension, acceptable control -On lisinopril HCTZ and metoprolol 6.? Hypothyroidism - levothyroxine continued 7.? Hyperlipidemia, LDL 50, 03/2022 -statin has been continued 8.? History of paroxysmal atrial fibrillation with runs of SVT vs VT on telemetry - amiodarone increased to 200 mg twice daily - Sinus rhythm currently - Will cover with Lovenox during hospitalization.? CHADS-VASC score of at least 3 (CHF, HTN, age). Patient stopped anticoagulation due to bruising after only 4 days of therapy in outpatient setting.
--- NOTE | 2022-06-05 18:43 | PC.NURSE ---
pt is aox4, has been sitting up to chair with no complaints. 5lnc for o2 support.
[2022-06-06] VITALS: BP 135/79; PULSE 61; RESP 18; TEMP 36.4; O2SAT 98
[2022-06-06 04:00] VITALS: BP 142/78; PULSE 64; RESP 18; TEMP 37.1; O2SAT 94; BMI 44.8
--- NOTE | 2022-06-06 05:17 | PC.NURSE ---
PATIENT HAS HAD A QUIET NIGHT. DENIES PAIN. REPORTS SOA WITH EXERTION. REMAINS ON [place]-CONTACT PRECAUTIONS FOR COVID +.
[2022-06-06 08:00] VITALS: BP 153/75; PULSE 70; RESP 16; TEMP 36.8; O2SAT 95; O2SAT 97
[2022-06-06 08:28] LABS: Alanine Aminotransferase 93 U/L (12-78); Albumin Level 3.7 g/dl (3.5-5.0); Albumin/Globulin Ratio 1.2 (1.1-1.8); Alkaline Phosphatase 66 U/L (38-126); Anion Gap 9.9 mEq/L (5-15); Aspartate Amino Transferase 69 U/L (17-59); Bilirubin,Total 0.5 mg/dl (0.2-1.3); Blood Urea Nitrogen 32 mg/dl (9-20); Calcium 8.6 mg/dl (8.4-10.2); Carbon Dioxide 30 mmol/L (22.0-30.0); Chloride 102 mmol/L (98-107); Creatinine Clearance Estimated 63 mL/min (50-200); Estimated Glomerular Filt Rate 82 ml/min (>60); GFR (African American) 100 ML/MIN (>60); Globulin 3.2 g/dL (1.3-3.2); Glucose 118 mg/dl (74-100); Potassium 3.9 mmoL/L (3.5-5.1); Sodium 138 mmol/L (136-145); Total Protein,Serum 6.9 g/dl (6.3-8.2)
--- NOTE | 2022-06-06 11:09 | EXP.ACUTE.PN ---
Subjective *Date: 06/06/22 *Time: 11:09 Interval history: He continues to do well. His breathing has improved. He states that he took a shower this morning without oxygen and did well. I been concerned about his weight which continues to increase despite additional Lasix given yesterday. I am going to discontinue the hydrochlorothiazide and increase the IV Lasix to 40 mg twice daily. Check CBC and blood chemistries. His BUN and creatinine have been good.Consider adding spironolactone. Medical Exam Vital signs and Labs for Last 24 Hours: Vital Signs Temp Pulse Pulse Resp BP Pulse Ox 06/06/22 08:00 98.3 F 70 16 153/75 H 97 06/06/22 04:00 98.8 F 64 18 142/78 H 94 L 06/05/22 21:00 96 06/06/22 00:00 97.6 F 61 18 135/79 98 06/05/22 20:00 98.9 F 73 18 150/80 H 96 06/05/22 20:00 97 06/05/22 16:00 98.4 F 57 L 15 138/74 97 06/05/22 12:00 80 Intake and Output 06/05/22 06/06/22 06/06/22 19:59 03:59 11:59 Intake Total 480 / 600 120 / 600 Output Total 400 / 400 0 / 400 0 / 400 Balance 80 / 200 120 / 200 0 / 200 Intake: Intake, Oral Amount 480 / 600 120 / 600 Output: Output, Urine Amount 400 / 400 0 / 400 0 / 400 Other: Number of Unmeasured Voids 1 1 1 Weight 293 lb 3.437 oz 295 lb 10.238 oz Patient Weight 06/06/22 11:59 Weight 295 lb 10.238 oz Laboratory Results - last 24 hr 06/06/22 07:55: Sodium 138, Potassium 3.9, Chloride 102, Carbon Dioxide 30, Anion Gap 9.9, BUN 32 H, Creatinine 0.90, Estimated Creat Clear 63, Estimated GFR 82, Est GFR ( Amer) 100, Glucose 118 H, Calcium 8.6, Total Bilirubin 0.5, AST 69 H, ALT 93 H, Alkaline Phosphatase 66, Total Protein 6.9, Albumin 3.7, Globulin 3.2, Albumin/Globulin Ratio 1.2 I & O for Labs for Last 24 Hours: Intake & Output 06/03/22 06/04/22 06/05/22 06/06/22 11:59 11:59 11:59 11:59 Intake Total 480 / 480 1197 / 1197 2180 / 2180 600 / 600 Output Total 400 / 400 1100 / 1100 3300 / 3300 400 / 400 Balance 80 / 80 97 / 97 -1120 / -1120 200 / 200 Weight 277 lb 7 oz 277 lb 7.016 oz 293 lb 3.437 oz 295 lb 10.238 oz Microbiology Reports for the Last 24 Hours: Microbiology 06/03/22 05:53 Blood Blood Culture - Preliminary NO GROWTH AFTER 48 HOURS 06/03/22 05:53 Blood Blood Culture - Preliminary NO GROWTH AFTER 48 HOURS Head: Present normocephalic Neck: Present normal inspection Respiratory: Present decreased breath sounds; Absent rhonchi, stridor or wheezes Cardiac: Present Regular Rate and Regular Rhythm GI: Present soft; Absent tenderness Rectal (male): Present deferred (male): Present deferred Extremities: Present edema (3+) Skin: Present intact Neuro: Present alert, awake and oriented x 3 Assessment and Plan *Assessment and plan (1) COVID-19: Status: Acute Category: Medical Code(s): U07.1 - COVID-19 (2) Pneumonia: Status: Acute Category: Medical Code(s): J18.9 - Pneumonia, unspecified organism (3) Paroxysmal atrial fibrillation: Status: Acute Category: Medical Code(s): I48.0 - Paroxysmal atrial fibrillation (4) On amiodarone therapy: Status: Chronic Category: Medical Code(s): Z79.899 - Other intermediate manager (current) drug therapy Plan Lasix 40 mg IV twice daily. Discontinue hydrochlorothiazide. Continue COVID-19 regimen. He will probably be treated through the weekend and be discharged on Wednesday.
[2022-06-06 12:00] VITALS: BP 126/71; PULSE 59; RESP 16; TEMP 36.7; O2SAT 96
[2022-06-06 12:07] LABS: Basophils # 0.1 K/mm3 (0-0.2); Basophils % 0.5 % (0.1-2.0); Eosinophils # 0.1 K/mm3 (0.0-0.4); Eosinophils % 0.6 % (0.1-12.0); Hemoglobin 12.1 g/dL (14.1-18.0); Lymphocytes # 1.1 K/mm3 (0.7-4.5); Lymphocytes % 7.1 % (10-50); Mean Corpuscular HGB Conc 32.8 g/dL (31.8-35.4); Mean Corpuscular Hemoglobin 30.7 pg (27.0-31.2); Mean Corpuscular Volume 93.7 fl (80-94); Mean Platelet Volume 8.2 fl (7.4-10.4); Monocytes # 0.7 K/mm3 (0.1-1.0); Monocytes % 4.7 % (1.7-9.3); Neutrophils # 13.4 K/mm3 (1.8-7.8); Neutrophils % 87.2 % (37.0-80.0); Platelet Count 547 K/mm3 (142-424); Red Blood Count 3.95 M/mm3 (4.60-6.20); Red Cell Distribution Width 14.1 % (11.5-17.5); White Blood Count 15.4 K/mm3 (4.8-10.8)
[2022-06-06 12:09] LABS: MANUAL DIFFERENTIAL MANUAL DIFFERENTIAL (MANUAL DIFF)
[2022-06-06 12:17] LABS: Chloride 101 mmol/L (98-107); Sodium 136 mmol/L (136-145)
[2022-06-06 12:19] LABS: Alanine Aminotransferase 96 U/L (12-78); Aspartate Amino Transferase 74 U/L (17-59); Blood Urea Nitrogen 32 mg/dl (9-20); Creatinine Clearance Estimated 63 mL/min (50-200); Estimated Glomerular Filt Rate 73 ml/min (>60); GFR (African American) 88 ML/MIN (>60)
[2022-06-06 12:20] LABS: Albumin Level 3.6 g/dl (3.5-5.0); Albumin/Globulin Ratio 1.1 (1.1-1.8); Alkaline Phosphatase 77 U/L (38-126); Bilirubin,Total 0.6 mg/dl (0.2-1.3); Calcium 8.8 mg/dl (8.4-10.2); Carbon Dioxide 27 mmol/L (22.0-30.0); Globulin 3.4 g/dL (1.3-3.2); Glucose 118 mg/dl (74-100)
[2022-06-06 13:23] LABS: Lymphocytes % 11 % (10-50); Monocytes % 6 % (2-9); Neutrophils % 83 % (42-76); Platelet Estimate Moderate Increase; Total Cells Counted 100
[2022-06-06 13:24] LABS: RBC Morphology Normal
[2022-06-06 16:00] VITALS: BP 128/68; PULSE 58; RESP 20; TEMP 36.5; O2SAT 97
--- NOTE | 2022-06-06 18:45 | PC.NURSE ---
pt has been up to chair for all of shift. has ambulated in room and tolerated well. drops to mid 80's on room air. still requires 5lnc
[2022-06-06 20:00] VITALS: BP 153/72; PULSE 77; RESP 22; TEMP 36.6; O2SAT 95
[2022-06-07] VITALS (7 sets, daily range): BP systolic 131–166; BP diastolic 58–88; PULSE 61–77; RESP 17–20; TEMP 36.6–37; O2SAT 90–98; BMI 44.6
--- NOTE | 2022-06-07 04:55 | PC.NURSE ---
PATIENT REMAINS ON AIRBORN/CONTACT PRECAUTIONS DUE TO COVID. NO C/O PAIN OR SOA. 02 AT 5LNC. SLEEPS IN RECLINER. VITAL SIGNS STABLR.
[2022-06-07 07:47] LABS: Alanine Aminotransferase 90 U/L (12-78); Albumin Level 3.8 g/dl (3.5-5.0); Albumin/Globulin Ratio 1.2 (1.1-1.8); Alkaline Phosphatase 65 U/L (38-126); Anion Gap 12.1 mEq/L (5-15); Aspartate Amino Transferase 60 U/L (17-59); Bilirubin,Total 0.6 mg/dl (0.2-1.3); Blood Urea Nitrogen 35 mg/dl (9-20); Calcium 8.8 mg/dl (8.4-10.2); Carbon Dioxide 28 mmol/L (22.0-30.0); Chloride 99 mmol/L (98-107); Creatinine Clearance Estimated 63 mL/min (50-200); Estimated Glomerular Filt Rate 73 ml/min (>60); GFR (African American) 88 ML/MIN (>60); Globulin 3.2 g/dL (1.3-3.2); Glucose 108 mg/dl (74-100); Potassium 4.1 mmoL/L (3.5-5.1); Sodium 135 mmol/L (136-145)
--- NOTE | 2022-06-07 10:26 | PC.NURSE ---
91% on room air at this time
--- NOTE | 2022-06-07 14:16 | EXP.ACUTE.PN ---
Subjective *Date: 06/07/22 *Time: 14:16 Interval history: Clinically he seems quite stable. His O2 saturations do drop into the 80s without nasal O2, but he feels quite comfortable. His white blood cell count is elevated but that is in the face of taking dexamethasone. Medical Exam Vital signs and Labs for Last 24 Hours: Vital Signs Temp Pulse Resp BP Pulse Ox 06/07/22 11:12 98.6 F 68 17 138/58 L 96 06/07/22 08:00 95 06/07/22 07:44 98.1 F 69 18 159/75 H 90 L 06/07/22 04:00 98.1 F 63 20 143/80 H 94 L 06/06/22 20:00 95 06/07/22 00:00 98.0 F 75 20 131/67 93 L 06/06/22 20:00 97.8 F 77 22 153/72 H 95 06/06/22 16:00 97.7 F 58 L 20 128/68 97 Intake and Output 06/07/22 06/07/22 06/07/22 03:59 11:59 19:59 Intake Total 240 / 1080 360 / 1080 120 / 120 Output Total 0 / 0 0 / 0 0 / 0 Balance 240 / 1080 360 / 1080 120 / 120 Intake: Intake, Oral Amount 240 / 1080 360 / 1080 120 / 120 Output: Output, Urine Amount 0 / 0 0 / 0 0 / 0 Other: Number of Unmeasured Voids 1 1 1 Weight 294 lb 8.601 oz Laboratory Results - last 24 hr 06/07/22 07:15: Sodium 135 L, Potassium 4.1, Chloride 99, Carbon Dioxide 28, Anion Gap 12.1, BUN 35 H, Creatinine 1.00, Estimated Creat Clear 63, Estimated GFR 73, Est GFR ( Amer) 88, Glucose 108 H, Calcium 8.8, Total Bilirubin 0.6, AST 60 H, ALT 90 H, Alkaline Phosphatase 65, Total Protein 7.0, Albumin 3.8, Globulin 3.2, Albumin/Globulin Ratio 1.2 I & O for Labs for Last 24 Hours: Intake & Output 06/05/22 06/06/22 06/07/22 06/08/22 11:59 11:59 11:59 11:59 Intake Total 2180 / 2180 1080 / 1080 1080 / 1080 120 / 120 Output Total 3300 / 3300 400 / 400 0 / 0 0 / 0 Balance -1120 / -1120 680 / 680 1080 / 1080 120 / 120 Weight 293 lb 3.437 oz 295 lb 10.238 oz 294 lb 8.601 oz Head: Present normocephalic Neck: Present normal inspection Respiratory: Present decreased breath sounds and CTA bilaterally Cardiac: Present Reg Rate and Rhythm GI: Present soft; Absent tenderness Rectal (male): Present deferred (male): Present deferred Extremities: Present edema (2-3+) Skin: Present intact Neuro: Present alert and oriented x 3 Assessment and Plan *Assessment and plan (1) COVID-19: Status: Acute Category: Medical Code(s): U07.1 - COVID-19 (2) Pneumonia: Status: Acute Category: Medical Code(s): J18.9 - Pneumonia, unspecified organism (3) Elevated troponin: Status: Acute Category: Medical Code(s): R77.8 - Other specified abnormalities of plasma proteins (4) Paroxysmal atrial fibrillation: Status: Acute Category: Medical Code(s): I48.0 - Paroxysmal atrial fibrillation Plan Continue present regimen. Recheck troponins. Possible discharge tomorrow.
[2022-06-07 14:41] LABS: Troponin I 0.04 ng/ml (0.00-0.034)
--- NOTE | 2022-06-07 19:01 | PC.NURSE ---
pt tolerated sitting up to chair for most of shift. ambulating to restroom with standby assist.
[2022-06-08] VITALS: BP 155/69; PULSE 61; RESP 18; TEMP 36.6; O2SAT 98
[2022-06-08 04:00] VITALS: BP 160/69; PULSE 56; RESP 19; TEMP 36.7; O2SAT 96; BMI 42.6
--- NOTE | 2022-06-08 06:38 | PC.NURSE ---
NO ACUTE CHANGES SINCE PREVIOUS ASSESSMENT. PT HAS RESTED WELL UP IN THE CHAIR THIS SHIFT. AMBULATING TO BATHROOM INDEPENDENTLY. TOLERATING ROOM AIR TO 2L NASAL CANNULA WELL. NASAL CANNULA IS FOR PT COMFORT. PT STATES HE FEELS OVER ALL PRETTY GOOD JUST CONGESTED.
[2022-06-08 07:16] LABS: Alanine Aminotransferase 88 U/L (12-78); Albumin Level 3.6 g/dl (3.5-5.0); Albumin/Globulin Ratio 1.2 (1.1-1.8); Alkaline Phosphatase 60 U/L (38-126); Anion Gap 10.1 mEq/L (5-15); Aspartate Amino Transferase 72 U/L (17-59); Bilirubin,Total 0.4 mg/dl (0.2-1.3); Blood Urea Nitrogen 34 mg/dl (9-20); Calcium 8.6 mg/dl (8.4-10.2); Carbon Dioxide 29 mmol/L (22.0-30.0); Chloride 99 mmol/L (98-107); Creatinine Clearance Estimated 63 mL/min (50-200); Estimated Glomerular Filt Rate 73 ml/min (>60); GFR (African American) 88 ML/MIN (>60); Glucose 111 mg/dl (74-100); Potassium 4.1 mmoL/L (3.5-5.1); Sodium 134 mmol/L (136-145); Total Protein,Serum 6.6 g/dl (6.3-8.2)
[2022-06-08 07:34] VITALS: BP 121/58; PULSE 58; RESP 17; TEMP 36.9; O2SAT 97
[2022-06-08 08:00] VITALS: RESP 22; O2SAT 97
--- NOTE | 2022-06-08 08:20 | EXP.PN ---
Subjective *Date: 06/08/22 *Time: 08:20 Interval history: Patient states he feels wonderful. In fact everything is wonderful. He denies chest pain. He continues with a nonproductive cough. He has been out of bed without difficulties. He is voiding QS and bowels have moved. He is eating without problems. Liver function studies remain slightly elevated possibly due to remdesivir. O2 sats are good and apparently patient has been on and off his O2. He states they restarted it last night due to decrease saturations. Troponin I decreased yesterday to 0.04. Weight is down from 294-281 this AM. Exam Data for Last 24 hours Vital signs and Labs for Last 24 Hours: Temp Pulse Resp BP Pulse Ox FiO2 98.4 F 58 L 17 121/58 L 97 50 06/08/22 07:34 06/08/22 07:34 06/08/22 07:34 06/08/22 07:34 06/08/22 07:34 06/04/22 12:00 Laboratory Results - last 24 hr 06/07/22 14:15: Troponin I 0.04 H 06/08/22 06:37: Sodium 134 L, Potassium 4.1, Chloride 99, Carbon Dioxide 29, Anion Gap 10.1, BUN 34 H, Creatinine 1.00, Estimated Creat Clear 63, Estimated GFR 73, Est GFR ( Amer) 88, Glucose 111 H, Calcium 8.6, Total Bilirubin 0.4, AST 72 H, ALT 88 H, Alkaline Phosphatase 60, Total Protein 6.6, Albumin 3.6, Globulin 3.0, Albumin/Globulin Ratio 1.2 I & O for Last 24 hours: Intake & Output 06/05/22 06/06/22 06/07/22 06/08/22 11:59 11:59 11:59 11:59 Intake Total 2180 / 2180 1080 / 1080 1080 / 1080 900 / 900 Output Total 3300 / 3300 400 / 400 0 / 0 0 / 0 Balance -1120 / -1120 680 / 680 1080 / 1080 900 / 900 Weight 293 lb 3.437 oz 295 lb 10.238 oz 294 lb 8.601 oz 281 lb 2 oz Microbiology Reports for the Last 24 Hours: Microbiology 06/03/22 05:53 Blood Blood Culture - Final NO GROWTH AFTER 5 DAYS 06/03/22 05:53 Blood Blood Culture - Final NO GROWTH AFTER 5 DAYS Constitutional Constitutional: no acute distress Comments: Sitting up in the chair and is very happy *Routine Respiratory Exam Respiratory: Present CTA bilaterally (Anteriorly and posteriorly) *Routine Cardiovascular Exam Cardiovascular: Present RRR *Routine Abdominal Exam Abdominal: Present soft, normoactive bowel sounds and obese; Absent tenderness *Routine Extremities Exam Extremities: Present edema (Bilateral lower leg); Absent calf tenderness or palpable cord *Routine Neurological Exam Neurological: Present alert and oriented X3 Assessment and Plan *Assessment and plan (1) COVID-19: Status: Acute Category: Medical Code(s): U07.1 - COVID-19 (2) Pneumonia: Status: Acute Category: Medical Code(s): J18.9 - Pneumonia, unspecified organism (3) Elevated troponin: Status: Acute Category: Medical Code(s): R77.8 - Other specified abnormalities of plasma proteins (4) Paroxysmal atrial fibrillation: Status: Acute Category: Medical Code(s): I48.0 - Paroxysmal atrial fibrillation Plan Continue with diuresis and current care.
[2022-06-08 11:00] VITALS: BP 131/70; PULSE 57; RESP 18; TEMP 36.9; O2SAT 96
--- NOTE | 2022-06-08 11:33 | CARE MANAGER ---
Patient does not qualify for home O2, RA saturations this morning are 96% on RA per SRNA. Patient states that he is able to ambulate around the room without assistance and does not feel that he needs HH services. Patient discharging home today.
--- NOTE | 2022-06-08 12:45 | HMH.PHAINT1 ---
Pharmacy Intervention Comments: Counseled patient on discharge medications prior to discharge. Overviewed changed and continued medications. Patient verbalized understanding of information provided and had no questions or concerns at this time. -Precious Meyers, PharmD Candidate 2022
--- NOTE | 2022-06-09 15:25 | CARE MANAGER ---
Called to discuss post discharge status with patient. 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 Ivy. No complaints or concerns at time of call.
--- NOTE | 2022-06-10 08:38 | EXP.DC.SUM ---
General Admission date:: 06/03/22 Discharge date: 06/08/22 HPI HPI HPI: Mr. Azevedo is a 72-year-old male who was recently seen in the office of [facility] on 05/27/2022 with complaints of sinus congestion and coughing for over 2 months as well as a low-grade fever off and on. He had also had some body aches and some postnasal drainage. He was started on Ceftin 500 mg twice daily at that time. He finished antibiotics and his cough had not improved. He was unable to get his fever to break and presented to the emergency room. He was found to be COVID-positive and in respiratory failure. His white blood cell count was elevated at 18.7, his troponin was slightly elevated at 0.61, his BNP was elevated at 1940, and his C-reactive protein was elevated as well. His chest x-ray is still pending. He has been started on Zithromax and was given a dose of dexamethasone. He has also been started on COVID vitamins and was given 1 dose of remdesivir. Hospital Course Hospital Course Hospital Course: The patient's chest x-ray showed pneumonia versus cardiogenic or noncardiogenic edema versus other alveolar filling process. The patient was admitted and started on antibiotics as well as COVID protocol and cardiology was consulted. Cardiology saw the patient and ordered an echo, but had no plans for left heart cath. They felt his elevated BNP was likely secondary to COVID with right heart strain and gave him a short course of Lasix. They wanted him covered with Lovenox during hospitalization due to his history of paroxysmal A. fib and they also wanted his amiodarone continued. His echo showed an EF of 55%. Dr. Ivy was consulted during the night on 06/04/2022 with reports of the patient having runs of V. tach. He ordered an additional dose of potassium and 400 mg of magnesium p.o. as well as 100 mg of amiodarone. He spoke with Dr. Hu and he reviewed the rhythm strip. Dr. Hu felt it was supraventricular instead of V. tach and initiated the patient on an amiodarone drip. By the morning of 06/04/2022, he was in normal sinus rhythm with a rate of 60 and felt better. The patient continued to improve throughout his stay. His shortness of breath and sinus congestion were improving. His blood cultures showed no growth. He remained in sinus rhythm. He did have to have a few additional doses of Lasix due to lower extremity edema. He was able to be weaned off the amiodarone drip and was continued on amiodarone 200 mg twice daily. His weight continued to increase despite additional Lasix. His hydrochlorothiazide was discontinued and his IV Lasix was increased to 40 mg twice daily. His oxygen would drop into the 80s without nasal oxygen, but he was quite comfortable with the oxygen in place. By 06/08/2022, he stated he felt wonderful. He continued with a nonproductive cough, but had been out of bed without difficulty. His liver function studies remained slightly elevated possibly due to remdesivir. His oxygen saturations had improved and he had been on and off of his oxygen. His weight was down. It was felt he was stable to be discharged home. Exam Data for Last 24 hours Vital signs and Labs for Last 24 Hours: Temp Pulse Resp BP Pulse Ox FiO2 98.5 F 57 L 18 131/70 96 50 06/08/22 11:00 06/08/22 11:00 06/08/22 11:00 06/08/22 11:00 06/08/22 11:00 06/04/22 12:00 I & O for Last 24 hours: Intake & Output 06/07/22 06/08/22 06/09/22 06/10/22 11:59 11:59 11:59 11:59 Intake Total 1080 / 1080 900 / 900 Output Total 0 / 0 0 / 0 Balance 1080 / 1080 900 / 900 Weight 294 lb 8.601 oz 281 lb 2 oz Narrative: Constitutional Constitutional: no acute distress *Routine HEENT Exam Head: Present normocephalic and atraumatic Eye: Present EOMI and PERRL ENT: Present mucous membranes moist *Routine Neck Exam Neck: Present supple and full ROM *Routine Respiratory Exam Respiratory: Present decreased breath sounds *
--- NOTE | 2022-06-10 13:05 | CARE MANAGER ---
Contacted patient's related to hospital discharge. She states he is doing very well and they obtained his new medication. They are aware of follow up appointment and deny any questions or concerns. HALLE Peguero
== END 2022-06-08 12:30 | disposition home or self-care (01) | DRG 177 ==
LOC: ER 05:49 → 2ND 07:07
PROVIDERS: Admitting Provider Family Medicine; Emergency Provider Emergency Medicine; PCP Family Medicine; Visit Provider Family Medicine
DX: U07.1 COVID-19 (principal); J12.82 Pneumonia due to coronavirus disease 2019; E87.1 Hypo-osmolality and hyponatremia; E78.5 Hyperlipidemia, unspecified; M10.9 Gout, unspecified; Z95.5 Presence of coronary angioplasty implant and graft; I48.0 Paroxysmal atrial fibrillation; I10 Essential (primary) hypertension; E87.6 Hypokalemia
CPT/HCPCS: 36415; 71045; 80053; 82803; 83605; 83735; 83880; 84145; 84484; 85007; 85025; 85651; 86140; 87040; 93005; 93308; 99285; C9803; J0282; J0456; J7060; U0003; U0005

== ENCOUNTER 2022-06-10 16:20 | Emergency (ER) | payer MEDICARE, MEDICAID, SELFPAY ==
[2022-06-10 16:31] VITALS: BP 200/87; BP 210/89; PULSE 105; RESP 16; TEMP 36.9; O2SAT 98; BMI 43.3
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
[2022-06-10 16:39] VITALS: BP 155/96; PULSE 97; O2SAT 98
[2022-06-10 16:51] VITALS: BP 155/96; PULSE 96; RESP 14; TEMP 37; O2SAT 96
== END 2022-06-10 16:53 | disposition home or self-care (01) ==
PROVIDERS: Emergency Provider Student in an Organized Health Care Education/Training Program; PCP Family Medicine
DX: T76.31XA Adult psychological abuse, suspected, initial encounter (principal); Y07.02 Wife, perpetrator of maltreatment and neglect; I48.0 Paroxysmal atrial fibrillation; I10 Essential (primary) hypertension; Z86.16 Personal history of COVID-19; I25.10 Atherosclerotic heart disease of native coronary artery without angina pectoris; M19.90 Unspecified osteoarthritis, unspecified site; E78.5 Hyperlipidemia, unspecified; Z95.5 Presence of coronary angioplasty implant and graft; Z80.9 Family history of malignant neoplasm, unspecified; Z82.49 Family history of ischemic heart disease and other diseases of the circulatory system
CPT/HCPCS: 99283

== ENCOUNTER → 2023-01-14 14:48 | Outpatient (CLI) | payer MEDICARE, MEDICAID, SELFPAY ==
--- NOTE | 2023-01-14 15:11 | XR_ITS ---
FINAL REPORT TECHNIQUE: Chest PA & Lateral CLINICAL HISTORY: on amiodarone therapy COMPARISON: 06/03/2022 FINDINGS: 2 views of the chest were performed. The heart size is mildly enlarged. The mediastinum is within normal limits. There are mild chronic changes at the lung bases. Previously noted bilateral airspace infiltrates have essentially resolved. There are no pleural effusions. There is no pneumothorax. The bony thorax appears intact. IMPRESSION: Mild changes at the lung bases. Reviewed, Interpreted and Dictated by Benja Vallejo MD Transcribed by Sara Sparks Authenticated and [facility]
[2023-01-14 16:32] LABS: Basophils # 0.1 K/mm3 (0-0.2); Basophils % 0.9 % (0.1-2.0); Eosinophils # 0.1 K/mm3 (0.0-0.4); Eosinophils % 1.8 % (0.1-12.0); Hematocrit 41.1 % (42.0-52.0); Hemoglobin 13.3 g/dL (14.1-18.0); Lymphocytes # 2.6 K/mm3 (0.7-4.5); Lymphocytes % 35.6 % (10-50); Mean Corpuscular HGB Conc 32.4 g/dL (31.8-35.4); Mean Corpuscular Hemoglobin 31.7 pg (27.0-31.2); Mean Platelet Volume 7.8 fl (7.4-10.4); Monocytes # 0.5 K/mm3 (0.1-1.0); Neutrophils % 54.8 % (37.0-80.0); Platelet Count 262 K/mm3 (142-424); Red Blood Count 4.19 M/mm3 (4.60-6.20); Red Cell Distribution Width 14.9 % (11.5-17.5); White Blood Count 7.3 K/mm3 (4.8-10.8)
[2023-01-14 17:09] LABS: Alanine Aminotransferase 63 U/L (12-78); Albumin Level 4.7 g/dl (3.5-5.0); Alkaline Phosphatase 66 U/L (38-126); Anion Gap 16.4 mEq/L (5-15); Aspartate Amino Transferase 39 U/L (17-59); Bilirubin,Indirect 0.4 mg/dL (0.0-0.9); Bilirubin,Total 0.4 mg/dl (0.2-1.3); Bilirubin,Unconjugated 0.5 mg/dL (0.0-1.1); Blood Urea Nitrogen 38 mg/dl (9-20); Carbon Dioxide 28 mmol/L (22.0-30.0); Chloride 102 mmol/L (98-107); Chol/HDL Ratio 2.7 (1-3.5); Cholesterol 161 mg/dl (140-200); Estimated Glomerular Filt Rate 54 ml/min (>60); GFR (African American) 65 ML/MIN (>60); Glucose 106 mg/dl (74-100); HDL Cholesterol 60 mg/dl (40-60); Magnesium 1.9 mg/dl (1.6-2.3); Potassium 4.4 mmoL/L (3.5-5.1); Sodium 142 mmol/L (136-145); Total Protein,Serum 7.5 g/dl (6.3-8.2); Triglycerides 79 mg/dl (30-150); VLDL Cholesterol 16 mg/dL (0-40)
[2023-01-14 17:20] LABS: Direct LDL Cholesterol 73.06 mg/dL (100-129)
[2023-01-14 17:32] LABS: Free T4 (Free Thyroxine) 1.19 ng/dl (0.78-2.19)
== END ==
PROVIDERS: Nurse Practitioner Family; PCP Family Medicine; Visit Provider Nurse Practitioner
DX: I11.9 Hypertensive heart disease without heart failure (principal); I25.10 Atherosclerotic heart disease of native coronary artery without angina pectoris; I48.0 Paroxysmal atrial fibrillation; Z79.899 Other long term (current) drug therapy; U07.1 COVID-19
CPT/HCPCS: 36415; 71046; 80048; 80061; 80076; 83735; 84439; 84443; 85025

== ENCOUNTER → 2023-03-05 09:55 | Outpatient (CLI) | payer MEDICARE, MEDICAID, SELFPAY ==
[2023-03-05 12:09] LABS: Anion Gap 12.1 mEq/L (5-15); Blood Urea Nitrogen 27 mg/dl (9-20); Calcium 9.3 mg/dl (8.4-10.2); Carbon Dioxide 28 mmol/L (22.0-30.0); Chloride 103 mmol/L (98-107); Estimated Glomerular Filt Rate 82 ml/min (>60); GFR (African American) 100 ML/MIN (>60); Glucose 99 mg/dl (74-100); Potassium 4.1 mmoL/L (3.5-5.1); Sodium 139 mmol/L (136-145)
== END ==
PROVIDERS: PCP Family Medicine; Visit Provider Nurse Practitioner
DX: I11.9 Hypertensive heart disease without heart failure; I25.10 Atherosclerotic heart disease of native coronary artery without angina pectoris; I48.0 Paroxysmal atrial fibrillation; Z79.899 Other long term (current) drug therapy
CPT/HCPCS: 36415; 80048

== ENCOUNTER 2024-02-10 14:04 | Outpatient (CLI) | payer MEDICARE, MEDICAID, SELFPAY ==
--- NOTE | 2024-02-10 14:09 | XR_ITS ---
FINAL REPORT CLINICAL HISTORY: on amiodarone COMPARISON: 01/14/2023 FINDINGS: 2 views of the chest were obtained . The heart is normal in size. The mediastinum is within normal limits. The lungs are underinflated. There is atelectasis at the right lung base. There is no pneumothorax. Osseous structures are unremarkable. IMPRESSION: No acute cardiopulmonary process. Reviewed, Interpreted and Dictated by Benja Vallejo MD Transcribed by Miesha Cannon Authenticated and . [facility]
[2024-02-10 14:46] LABS: Basophils # 0.1 K/mm3 (0-0.2); Basophils % 1.3 % (0.1-2.0); Eosinophils # 0.1 K/mm3 (0.0-0.4); Eosinophils % 1.8 % (0.1-12.0); Hematocrit 42.4 % (42.0-52.0); Hemoglobin 13.3 g/dL (14.1-18.0); Lymphocytes # 3.5 K/mm3 (0.7-4.5); Lymphocytes % 43.1 % (10-50); Mean Corpuscular HGB Conc 31.4 g/dL (31.8-35.4); Mean Corpuscular Hemoglobin 31.6 pg (27.0-31.2); Mean Corpuscular Volume 100.7 fl (80-94); Mean Platelet Volume 8.7 fl (7.4-10.4); Monocytes # 0.7 K/mm3 (0.1-1.0); Monocytes % 8.7 % (1.7-9.3); Neutrophils # 3.7 K/mm3 (1.8-7.8); Neutrophils % 45.2 % (37.0-80.0); Platelet Count 263 K/mm3 (142-424); Red Blood Count 4.21 M/mm3 (4.60-6.20); Red Cell Distribution Width 14.6 % (11.5-17.5); White Blood Count 8.1 K/mm3 (4.8-10.8)
[2024-02-10 15:25] LABS: Alanine Aminotransferase 58 U/L (12-78); Albumin Level 3.9 g/dl (3.5-5.0); Alkaline Phosphatase 61 U/L (38-126); Aspartate Amino Transferase 36 U/L (17-59); Bilirubin,Direct 0.2 mg/dl (0.0-0.4); Bilirubin,Indirect 0.1 mg/dL (0.0-0.9); Bilirubin,Total 0.3 mg/dl (0.2-1.3); Bilirubin,Unconjugated 0.1 mg/dL (0.0-1.1); Blood Urea Nitrogen 38 mg/dl (9-20); Calcium 9.7 mg/dl (8.4-10.2); Carbon Dioxide 28 mmol/L (22.0-30.0); Chloride 105 mmol/L (98-107); Chol/HDL Ratio 2.7 (1-3.5); Cholesterol 140 mg/dl (140-200); Estimated Glomerular Filt Rate 54 ml/min (>60); GFR (African American) 65 ML/MIN (>60); Glucose 96 mg/dl (74-100); HDL Cholesterol 51 mg/dl (40-60); Sodium 139 mmol/L (136-145); Total Protein,Serum 6.6 g/dl (6.3-8.2); Triglycerides 92 mg/dl (30-150); VLDL Cholesterol 18 mg/dL (0-40)
[2024-02-10 15:41] LABS: Free T4 (Free Thyroxine) 1.55 ng/dl (0.78-2.19)
[2024-02-10 17:00] LABS: Anion Gap 10.1 mEq/L (5-15); Potassium 4.1 mmoL/L (3.5-5.1)
[2024-02-10 22:10] LABS: Direct LDL Cholesterol 57.85 mg/dL (100-129); Thyroid Stimulating Hormone 0.87 uIU/mL (0.465-4.68)
== END 2024-02-10 23:59 | disposition home or self-care (01) ==
LOC: LAB 14:05
PROVIDERS: PCP Family Medicine; Visit Provider Physician Assistant
DX: I48.0 Paroxysmal atrial fibrillation (principal); Z79.899 Other long term (current) drug therapy; I25.10 Atherosclerotic heart disease of native coronary artery without angina pectoris; I11.9 Hypertensive heart disease without heart failure; R06.00 Dyspnea, unspecified; K21.9 Gastro-esophageal reflux disease without esophagitis
CPT/HCPCS: 36415; 71046; 80048; 80061; 80076; 83735; 84439; 84443; 85025

== ENCOUNTER 2024-02-28 12:41 | Outpatient (CLI) | payer MEDICARE, MEDICAID, SELFPAY ==
[2024-02-28 13:11] LABS: Chloride 103 mmol/L (98-107)
[2024-02-28 13:12] LABS: Potassium 3.7 mmoL/L (3.5-5.1); Sodium 140 mmol/L (136-145)
[2024-02-28 13:14] LABS: Blood Urea Nitrogen 20 mg/dl (9-20); Estimated Glomerular Filt Rate 65 ml/min (>60); GFR (African American) 79 ML/MIN (>60)
[2024-02-28 13:15] LABS: Anion Gap 11.7 mEq/L (5-15); Calcium 9.3 mg/dl (8.4-10.2); Carbon Dioxide 29 mmol/L (22.0-30.0); Glucose 124 mg/dl (74-100)
== END 2024-02-28 23:59 | disposition home or self-care (01) ==
LOC: LAB 12:42
PROVIDERS: PCP Family Medicine; Visit Provider Physician Assistant
DX: R79.89 Other specified abnormal findings of blood chemistry (principal)
CPT/HCPCS: 36415; 80048

== ENCOUNTER 2024-03-14 09:31 | Day surgery (SDC) | payer MEDICARE, MEDICAID, SELFPAY ==
[2024-03-10 14:59] VITALS: BMI 47.2
[2024-03-14] MEDS: TETRACAINE 0.5% OPTH SOL 15ML OP (09:52)
[2024-03-14] MEDS: APRACLONIDINE 0.5% OPHTH SOLN 5ML OP (09:52)
[2024-03-14] MEDS: TROPICAMIDE 1% OPTH SOLN 2ML OP (09:53)
[2024-03-14] MEDS: PHENYLEPHRINE 2.5% OPHTH SOLN 2ML OP (09:53)
[2024-03-14 09:56] VITALS: BP 156/72; PULSE 78; RESP 18; TEMP 36.6; O2SAT 93
[2024-03-14 11:09] VITALS: BP 150/74
--- NOTE | 2024-03-14 11:35 | P.PCN_ITS ---
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 The patient has noticed that the vision has decreased from the previous good level postop. The patient reports that he/she is having trouble reading and/or driving or that glare is giving them a problem. On exam, the patient was found to have visually significant posterior capsular opacification. The treatment options, risks and benefits were explained and the patient elected to have YAG laser capsulotomy in an attempt to improve the vision. Of note, the best corrected visual acuity is in the 23/30 or worse range by refraction or glare testing. The eye was dilated and 1 drop of 0.5% Iopidine applied. YAG laser energy was applied to the posterior capsular bag with good formation of an opening and no complications were noted. The patient will be seen back for follow up in 2 weeks. 22 pulses, 91mj.
== END 2024-03-14 11:11 | disposition home or self-care (01) ==
LOC: OUTP 09:32
PROVIDERS: PCP Family Medicine; Visit Provider Ophthalmology
PROC: (CPT 66821; principal; 2024-03-14 08:00)
DX: H26.491 Other secondary cataract, right eye (principal)
CPT/HCPCS: 66821

== ENCOUNTER 2024-04-07 07:15 | Day surgery (SDC) | payer MEDICARE, MEDICAID, SELFPAY ==
[2024-04-07 07:36] VITALS: BMI 47.9
[2024-04-07 07:37] VITALS: BP 143/74; PULSE 72; RESP 17; TEMP 36.6; O2SAT 95
--- NOTE | 2024-04-07 08:16 | P.PNANES_ITS ---
[facility] Disclaimer: The information contained in this section may have been updated after the patient was seen, as this information can be updated by other users. Medical History Elevated serum creatinine Major depressive disorder Gout Daytime somnolence Restless sleeper Snoring On amiodarone therapy Atrial fibrillation Hyperlipidemia Coronary arteriosclerosis Surgical History History of heart artery stent Family History Other Cancer Congestive heart failure Coronary artery disease Social History Smoking Status: Never smoker alcohol intake: never substance use type: denies use current occupational status: retired Travel in the last 8 weeks: None household members: spouse housing: house current occupational exposures/hazards: No caffeine: Yes [facility] Anesthesia Checklist Patient Identification Patient Identification: Verbal (Name & ) Structural Data Admitted From: Home Planned Operative Procedure/s: colonoscopy Consent for Planned Operative Procedure(s) Verified: Yes NPO Status Verified Time NPO: 00:00 Airway Assessment Mallampati Score:: Class III C-Spine Mobility Assessed: Yes TMJ Mobility Assessed: Yes Dentition: Edentulous Neurological Assessment Level of Consciousness: Awake, Alert and Appropriate Anesthesia Plan Anesthesia Risk discussed: Yes Anesthesia Plan: Verified ASA Class: III Anesthesia Type: MAC
--- NOTE | 2024-04-07 08:41 | P.PCN_ITS ---
Procedure: Date: 04/07/24 Patient Date of :: 1950 Procedure Performed:: Colonoscopy to cecum with polypectomy Indications:: Patient is a 74-year-old male with history of coronary artery disease, atrial fi brillation, on Eliquis, hypertension, obesity (BMI 48) referred for colonoscopy for positive Cologuard. He has never had prior colonoscopy. He has had Cologuard in the past and most recently this was positive. Performing Provider:: Edson Ulloa MD Referring Provider:: Artur Ivy MD Sedation:: MAC sedation Procedure:: Patient history was obtained and appropriate physical examination was performed. Patient's medications and allergies were reviewed. Informed consent was obtained after explaining the benefits, alternatives, and risks of the procedure including, but not limited to, bleeding, perforation, missed lesions, and adverse reaction to anesthesia medications. Patient was transported to endoscopy procedure room. Patient was connected to monitoring devices. Throughout the procedure the patient's blood pressure, pulse, and oxygen saturations were monitored continuously. Patient identification and planned procedure were verified by the staff. Patient was positioned in lateral decubitus position. Digital anorectal exam was performed. Variable stiffness Olympus colonoscope was inserted and advanced under direct visualization to the cecum. Adequacy of the colonic preparation was noted. TThe colonoscope was then slowly withdrawn while carefully examining the color, texture, anatomy, and integrity of the mucosoa circumferentially. Within the rectum retroflexion was performed. Colonoscope was then withdrawn. Impression: He had quite a redundant sigmoid colon and advancement of the colonoscope was somewhat difficult requiring abdominal pressure. Procedure was rather prolonged secondary to this and body habitus. In the cecum there was a tiny diminutive polyp removed with biopsy forceps in a piecemeal fashion. In the apparent transverse colon there was a tiny polyp removed with cold snare. Sigmoid colon there was a diminutive polyp removed with biopsy forceps. In the distal sigmoid colon there is a diminutive polyp removed in piecemeal fashion using biopsy forceps. There was pandiverticulosis with highest concentration of diverticuli in the sigmoid colon. . Findings:: Redundant sigmoid colon Pandiverticulosis Small polyps as noted above Recommendations:: Follow-up colonoscopy pending pathology. Possibly 2 or 3 years Complications:: None immediately apparent Estimated blood obtained (mL): 2 Colonoscopy Component Colonoscopy Component Was a colonoscopy performed during today's procedure?: Yes Recommended follow up colonoscopy of at least 10 years?: No If no, follow up colonoscopy recommended in ___ years?: See above Reason for not recommending >/= 10 yr follow-up interval?: See above
[2024-04-07 08:47] VITALS: O2SAT 100
[2024-04-07 09:49] VITALS: BP 117/66; PULSE 77; RESP 18; TEMP 36.6; O2SAT 94
[2024-04-07 09:59] VITALS: BP 141/73; PULSE 79; RESP 18; O2SAT 94
[2024-04-07 10:09] VITALS: BP 164/98; PULSE 77; RESP 18; O2SAT 94
[2024-04-07 10:19] VITALS: BP 155/72; PULSE 75; RESP 18; O2SAT 92
== END 2024-04-07 10:19 | disposition home or self-care (01) ==
PROVIDERS: PCP Family Medicine; Visit Provider Surgery
PROC: 0DJD8ZZ Inspection of Lower Intestinal Tract, Via Natural or Artificial Opening Endoscopic (ICD-10-PCS; CPT 45380; principal; 2024-04-07 08:30)
DX: R19.5 Other fecal abnormalities (principal); K57.30 Diverticulosis of large intestine without perforation or abscess without bleeding; K63.5 Polyp of colon
CPT/HCPCS: 45380; 45385; 88305; J2704

== ENCOUNTER 2024-10-23 10:00 | Outpatient (CLI) | payer MEDICARE, MEDICAID, SELFPAY ==
[2024-10-23 11:20] LABS: Basophils # 0.1 K/mm3 (0-0.2); Basophils % 0.9 % (0.1-2.0); Eosinophils # 0.2 Kmm3 (0.0-0.4); Eosinophils % 1.9 % (0.1-12.0); Hematocrit 39.7 % (42.0-52.0); Hemoglobin 12.7 g/dL (14.1-18.0); Immature Granulocytes # 0.03 10^3uL; Immature Granulocytes % 0.3 %; Lymphocytes % 33.3 % (10-50); Mean Corpuscular Hemoglobin 30.5 pg (27.0-31.2); Mean Corpuscular Volume 95.4 fl (80-94); Mean Platelet Volume 9.7 fl (7.4-10.4); Monocytes # 0.9 K/mm3 (0.1-1.0); Neutrophils # 4.8 K/mm3 (1.8-7.8); Neutrophils % 53.6 % (37.0-80.0); Nucleated Red Blood Cells # 0 10^3/uL; Nucleated Red Blood Cells % 0 %; Platelet Count 235 K/mm3 (142-424); Red Blood Count 4.16 M/mm3 (4.60-6.20); Red Cell Distribution Width 14.9 % (11.5-17.5); Red Cell Distribution Width-SD 52.4 fL; White Blood Count 8.9 K/mm3 (4.8-10.8)
[2024-10-23 11:47] LABS: Alanine Aminotransferase 159 U/L (12-78); Albumin Level 4.1 g/dl (3.5-5.0); Alkaline Phosphatase 62 U/L (38-126); Anion Gap 10.7 mEq/L (5-15); Aspartate Amino Transferase 100 U/L (17-59); Bilirubin,Direct 0.2 mg/dl (0.0-0.4); Bilirubin,Indirect 0.2 mg/dL (0.0-0.9); Bilirubin,Total 0.4 mg/dl (0.2-1.3); Bilirubin,Unconjugated 0.3 mg/dL (0.0-1.1); Blood Urea Nitrogen 34 mg/dl (9-20); Calcium 9.3 mg/dl (8.4-10.2); Carbon Dioxide 31 mmol/L (22.0-30.0); Chloride 104 mmol/L (98-107); Chol/HDL Ratio 2.7 (1-3.5); Cholesterol 141 mg/dl (140-200); Estimated Glomerular Filt Rate 49 ml/min (>60); GFR (African American) 60 ML/MIN (>60); Glucose 101 mg/dl (74-100); HDL Cholesterol 52 mg/dl (40-60); Magnesium 1.9 mg/dl (1.6-2.3); Potassium 4.7 mmoL/L (3.5-5.1); Sodium 141 mmol/L (136-145); Total Protein,Serum 6.5 g/dl (6.3-8.2); Triglycerides 110 mg/dl (30-150); VLDL Cholesterol 22 mg/dL (0-40)
[2024-10-23 11:58] LABS: Direct LDL Cholesterol 52.94 mg/dL (100-129)
[2024-10-23 12:05] LABS: Free T4 (Free Thyroxine) 1.45 ng/dl (0.78-2.19)
[2024-10-23 12:18] LABS: Thyroid Stimulating Hormone 5.98 uIU/mL (0.465-4.68)
== END 2024-10-23 23:59 | disposition home or self-care (01) ==
LOC: LAB 10:01
PROVIDERS: PCP Family Medicine; Visit Provider Physician Assistant
DX: I25.10 Atherosclerotic heart disease of native coronary artery without angina pectoris (principal); I11.9 Hypertensive heart disease without heart failure
CPT/HCPCS: 36415; 80048; 80061; 80076; 83735; 84439; 84443; 85025

== ENCOUNTER 2024-12-12 10:58 | Outpatient (CLI) | payer MEDICARE, MEDICAID, SELFPAY ==
--- OUTSIDE RECORDS SUMMARY | 2024-12-12 11:04 | XMS_ITS | Clinical Summary ---
Author Organization Healthcare Address [address] [place] [address] Care Team Providers Care Family Assistant Name Role Phone Unavailable Primary Care Provider Unavailabl e Social History Tobacco Use Types Packs/Day Years Used Date Smoking Tobacco: Never Assessed Sex and Gender Information Value Date Recorded Sex Assigned at Not on file Legal Sex Male 12:09 PM EST Gender Identity Not on file Sexual Orientation Not on file Plan of Treatment Health Maintenance Due Date Last Done Comments [facility]-Depression Screening 1950 [facility]-Hepatitis C Screening 1950 [facility]-Medicare Annual Wellness (AWV) 1950 [facility]-/Child/Adol SDOH Screenings 1950 [facility]- SDOH Screenings 02/06/1966 [facility]-Adult SDOH Screenings 02/06/1966 [facility]-Pneumococcal Vaccine: 50+ Years (1 of 1 - PCV) 02/06/1998 [facility]-Zoster Vaccines (2 of 3) 04/07/2017 02/10/2017 [facility]-RSV Vaccine: 60+ Years or (1 - 1-dose 75+ series) 02/06/2023 [id number] Vaccine ( - season) 2024 [facility]-Influenza Vaccine (#1) 2025 [facility]-DTaP,Tdap,and Td Vaccines (2 - Td or Tdap) 09/30/2027 09/29/2017, 07/25/1996 [facility]-Hepatitis A Vaccines Aged Out 018, 09/21/2017 No longer eligible based on patient's age to complete this topic HPV Vaccines Aged Out No longer eligi ble based on patient's age to complete this topic [facility]-HIB Vaccines Aged Out No longer e ligible based on patient's age to complete this topic [facility]-IPV Vaccines Aged Out No longer e ligible based on patient's age to complete this topic [facility]-Rotavirus Vaccines Aged Out No lo nger eligible based on patient's age to complete this topic Insurance [place] [employer]
[2024-12-12 12:02] LABS: Alanine Aminotransferase 133 U/L (12-78); Albumin Level 4.4 g/dl (3.5-5.0); Alkaline Phosphatase 63 U/L (38-126); Anion Gap 12.9 mEq/L (5-15); Aspartate Amino Transferase 79 U/L (17-59); Bilirubin,Direct 0.5 mg/dl (0.0-0.4); Bilirubin,Indirect 0.1 mg/dL (0.0-0.9); Bilirubin,Total 0.6 mg/dl (0.2-1.3); Bilirubin,Unconjugated 0.2 mg/dL (0.0-1.1); Blood Urea Nitrogen 41 mg/dl (9-20); Calcium 10.1 mg/dl (8.4-10.2); Carbon Dioxide 30 mmol/L (22.0-30.0); Chloride 102 mmol/L (98-107); Creatinine,Serum 1.80 mg/dl (0.66-1.25); Estimated Glomerular Filt Rate 37 ml/min (>60); GFR (African American) 45 ML/MIN (>60); Glucose 93 mg/dl (74-100); Potassium 4.9 mmoL/L (3.5-5.1); Sodium 140 mmol/L (136-145); Total Protein,Serum 6.7 g/dl (6.3-8.2)
[2024-12-12 12:17] LABS: Free Thyroxine Index 3.6 ug/dL (5.93-13.13); T4 (Thyroxine) 10.2 ug/dl (5.53-11.0); Triiodothryronine (T3) Uptake 35 % (23.5-40.5)
[2024-12-12 12:30] LABS: Thyroid Stimulating Hormone 6.76 uIU/mL (0.465-4.68)
== END 2024-12-12 23:59 | disposition home or self-care (01) ==
LOC: LAB 10:59
PROVIDERS: PCP Family Medicine; Visit Provider Physician Assistant
DX: I25.10 Atherosclerotic heart disease of native coronary artery without angina pectoris (principal); I48.0 Paroxysmal atrial fibrillation; I10 Essential (primary) hypertension
CPT/HCPCS: 36415; 80048; 80076; 84436; 84443; 84479